=== PATIENT | female | born 1945 | race American Indian/Alaskan Native ===

== ENCOUNTER 2020-10-01 05:48 | Observation (INO) | payer MEDICARE ==
[2020-10-01 06:32] LABS: Basophils % (Auto) 0.5 % (0.0-1.8); Eosinophils # (Auto) 0.1 K/mm3 (0.0-0.4); Eosinophils % (Auto) 1.7 % (0.0-4.3); Hematocrit 25.8 % (30.3-42.9); Hemoglobin 8.8 gm/dl (10.1-14.3); Lymphocytes % (Auto) 21.7 % (13.4-35.0); Mean Corpuscular HGB Conc 34 % (30-34); Mean Corpuscular Volume 100 fl (79-97); Monocytes # (Auto) 0.3 K/mm3 (0.0-0.8); Monocytes % (Auto) 5.8 % (0.0-7.3); Platelet Count 239 K/mm3 (140-440); Red Blood Count 2.58 M/mm3 (3.65-5.03); Red Cell Distribution Width 13.8 % (13.2-15.2)
[2020-10-01] MEDS ORDERED: SODIUM CHLORIDE 0.9% 1000 ML 1,000 ML IV ONE ×2 (06:32)
--- NOTE | 2020-10-01 06:41 | Emergency Department Report ---
HPI - General Chief Complaint: GI Bleed Time Seen by Provider: 10/01/20 06:30 - HPI HPI: Room 2 The patient is a 75-year-old female present with a chief complaint of rectal bleeding. Last night the patient noticed a little bit of blood in her stool aft er having a bowel movement. This morning at approximately 03: 00 the patient went to the bathroom and started passing blood per rectum including blood clots. This continued intermittently throughout the morning prompting family to bring the patient to the emergency department. Patient denies nausea/vomiting or abdominal pain. Patient denies have any complaints currently. Systolic blood pressure 160 at time of interview ED Past Medical Hx - Past Medical History Previous Medical History?: Yes Hx Hypertension: Yes - Surgical History Past Surgical History?: Yes Additional Surgical History: Thyroidectomy - Family History Family history: no significant - Social History Smoking Status: Never Smoker Substance Use Type: None (Denies illicit drug use) ED Review of Systems ROS: Stated complaint: BLEEDING CLOTS,WEAKNESS Other details as noted in HPI Constitutional: no symptoms reported Eyes: denies: eye pain ENT: denies: throat pain Respiratory: no symptoms reported Cardiovascular: denies: chest pain Endocrine: no symptoms reported Gastrointestinal: hematochezia. denies: abdominal pain, nausea, vomiting Genitourinary: denies: dysuria Musculoskeletal: denies: back pain Neurological: denies: headache Physical Exam - Physical Exam Vital Signs: Vital Signs 10/01/20 10/01/20 06:16 06:18 Temperature 97.6 F Pulse Rate 67 Respiratory 16 16 Rate Blood Pressure 67/40 [Left] Blood Pressure 59/41 [Right] O2 Sat by Pulse 98 99 Oximetry Physical Exam: GENERAL: The patient is well-developed well-nourished female lying on stretcher not appearing to be in acute distress. [] HEENT: Normocephalic. Atraumatic. Extraocular motions are intact. Patient has moist mucous membranes. NECK: Supple. Trachea midline CHEST/LUNGS: Clear to auscultation. There is no respiratory distress noted. HEART/CARDIOVASCULAR: Regular. There is no tachycardia. There is no gallop rub or murmur. ABDOMEN: Abdomen is soft, nontender. Patient has normal bowel sounds. There is no abdominal distention. SKIN: There is no rash. There is no edema. There is no diaphoresis. NEURO: The patient is awake, alert, and oriented. The patient is cooperative. The patient has no focal neurologic deficits. The patient has normal speech MUSCULOSKELETAL:There is no evidence of acute injury. RECTAL: Guaiac positive. No active bleeding at time of exam ED Course Vital Signs 10/01/20 10/01/20 06:16 06:18 Temperature 97.6 F Pulse Rate 67 Respiratory 16 16 Rate Blood Pressure 67/40 [Left] Blood Pressure 59/41 [Right] O2 Sat by Pulse 98 99 Oximetry - Consultations Consultation #1: 10/01/20 08:38 [facility] paged 10/01/20 09:52 Informed by [place] that the patient does not have an account with them Consultation #2: 10/01/20 09:35 GI paged ED Medical Decision Making - Lab Data Result diagrams: 10/01/20 06:02 10/01/20 06:02 - Differential Diagnosis Diverticulosis, colonic mass Critical care attestation.: If time is entered above; I have spent that time in minutes in the direct care of this critically ill patient, excluding procedure time. ED Disposition Clinical Impression: Rectal bleeding Disposition: DC-09 OP ADMIT IP TO THIS HOSP Is pt being admited?: Yes Does the pt Need Aspirin: No Condition: Stable Referrals: PRIMARY CARE, [Primary Care Provider] - 3-5 Days Forms: Accompanied Note Time of Disposition: 09:53 (Hospitalist paged)
[2020-10-01 06:45] LABS: Calcium 8.7 mg/dL (8.4-10.2)
[2020-10-01 07:31] LABS: INR 1.14 (0.87-1.13)
[2020-10-01 07:32] LABS: Partial Thromboplastin Time 27.3 Sec. (24.2-36.6)
[2020-10-01 08:36] LABS: Creatine Kinase MB 1.9 ng/mL (0.0-4.0)
[2020-10-01 08:41] LABS: Alanine Aminotransferase 7 units/L (7-56); Albumin 3.4 g/dL (3.9-5)
[2020-10-01 08:46] LABS: Bilirubin,Direct < 0.2 mg/dL (0-0.2)
--- NOTE | 2020-10-01 10:34 | History and Physical Report ---
History of Present Illness Date of examination: 10/01/20 Date of admission: 10/01/20 Chief complaint: GI bleed History of present illness: Patient is a 75-year-old woman with past medical hx of thyroidectomy, prior history of hematochezia presenting to the hospital with hematochezia, She was in her usual state of good health and on September 29, reported to her daughter that she had a bowel movement with some red blood in the bowl. This was not witnessed. She had no further problems and no further bowel movements until 3:00 this morning. At that time, she reported having a large amount of blood and clot in the bowl. She then had 2 more bouts of hematochezia and became weak and lightheaded and dizzy. Because of this, she was brought to the emergency room. Currently, she is doing well and is comfortable. The patient reports that she has had lost about 30 pounds of weight in the last 3 to 6 months unintentionally. She denies tobacco use. She has noted some skin color changes on her right need to cough variable attributed this to using heaters. She denies abdominal pain, nausea, vomiting. She denies prior GI bleeding. There is no history of peptic ulcer disease. She has bowel movements approximately 3 times a week without any change. She takes an 81 mg aspirin but otherwise does not take any nonsteroidals and is on not on any blood thinners. She denies chest pain or shortness of breath. She has never had a colonoscopy. She has very poor p.o. intake according to family. Past History Past Medical History: hypertension Past Surgical History: Other (Thyroidectomy) Social history: no significant social history Family history: no significant family history Medications and Allergies Allergies Allergy/AdvReac Type Severity Reaction Status Date / Time No Known Allergies Allergy Unverified 10/01/20 05:59 Active Meds: Active Medications Acetaminophen (Acetaminophen 325 Mg Tab) 650 mg PO Q4H PRN PRN Reason: Pain MILD(1-3)/Fever >100.5/CONLEY Al Hydrox/Mg Hydrox/Simethicone (Alum-Mag Hydroxide-Simethicone [phone]/5ml Oral Liqd 30 Ml) 30 ml PO Q4H PRN PRN Reason: Indigestion Albuterol (Albuterol 2.5 Mg/3 Ml Nebu) 2.5 mg IH Q4HRT PRN PRN Reason: Shortness Of Breath Docusate Sodium (Docusate Sodium 100 Mg Cap) 100 mg PO BID NAREN Dextrose/Sodium Chloride (D5ns) 1,000 mls @ 125 mls/hr IV DIRECT NAREN Morphine Sulfate (Morphine 2 Mg/1 Ml Inj) 2 mg IV Q4H PRN PRN Reason: Pain, Moderate (4-6) Ondansetron HCl (Ondansetron 4 Mg/2 Ml Inj) 4 mg IV Q8H PRN PRN Reason: Nausea And Vomiting Pantoprazole Sodium (Pantoprazole 40 Mg Inj) 40 mg IV BID NAREN Sodium Chloride (Sodium Chloride 0.9% 10 Ml Flush Syringe) 10 ml IV BID NAREN Sodium Chloride (Sodium Chloride 0.9% 10 Ml Flush Syringe) 10 ml IV PRN PRN PRN Reason: LINE FLUSH Review of Systems All systems: negative Constitutional: weight loss Cardiovascular: no chest pain, no orthopnea, no palpitations, no rapid/irregular heart beat Respiratory: no cough with sputum, no excessive sputum, no hemoptysis Rectal: bleeding Exam - Physical Exam Narrative exam: VITAL SIGNS: Reviewed. GENERAL: The patient appears normally developed, markedly cachectic vital signs as documented. HEAD: No signs of head trauma. EYES: Pupils are equal. Extraocular motions intact. EARS: Hearing grossly intact. MOUTH: Oropharynx is normal. NECK: No adenopathy, no JVD. CHEST: Chest with clear breath sounds bilaterally. No wheezes, rales, or rhonchi. CARDIAC: Regular rate and rhythm. S1 and S2, without murmurs, gallops, or rubs. VASCULAR: No Edema. Peripheral pulses normal and equal in all extremities. ABDOMEN: Soft, non tender and non distended. No rebound or guarding, and no masses palpated. Bowel Sounds normal. MUSCULOSKELETAL: Good range of motion of all major joints. Extremities without clubbing, cyanosis or edema. NEUROLOGIC EXAM: Alert and oriented x 3 No focal sensory or strength deficits. Speech normal. Follows commands. PSYCHIATRIC: Mood normal. SKIN: Skin excoriation like detail exam as documented in skin assessment - Constitutional Vitals: Temp Pulse Resp BP Pulse Ox 97.6 F 76 16 157/113 99 10/01/20 06:16 10/01/20 08:23 10/01/20 07:05 10/01/20 08:23 10/01/20 06:18 HEART Score - HEART Score Troponin: Troponin T < 0.010 ng/mL (0.00-0.029) 10/01/20 06:50 Results - Labs CBC & Chem 7: 10/01/20 10:42 10/01/20 06:02 Labs: Laboratory Last Values WBC 4.6 K/mm3 (4.5-11.0) 10/01/20 06:02 RBC 2.58 M/mm3 (3.65-5.03) L 10/01/20 06:02 Hgb 8.8 gm/dl (10.1-14.3) L 10/01/20 06:02 Hct 25.8 % (30.3-42.9) L 10/01/20 06:02 MCV 100 fl (79-97) H 10/01/20 06:02 MCH 34 pg (28-32) H 10/01/20 06:02 MCHC 34 % (30-34) 10/01/20 06:02 RDW 13.8 % (13.2-15.2) 10/01/20 06:02 Plt Count 239 K/mm3 (140-440) 10/01/20 06:02 Lymph % (Auto) 21.7 % (13.4-35.0) 10/01/20 06:02 [place] % (Auto) 5.8 % (0.0-7.3) 10/01/20 06:02 Eos % (Auto) 1.7 % (0.0-4.3) 10/01/20 06:02 Baso % (Auto) 0.5 % (0.0-1.8) 10/01/20 06:02 Lymph # (Auto) 1.0 K/mm3 (1.2-5.4) L 10/01/20 06:02 [place] # (Auto) 0.3 K/mm3 (0.0-0.8) 10/01/20 06:02 Eos # (Auto) 0.1 K/mm3 (0.0-0.4) 10/01/20 06:02 Baso # (Auto) 0.0 K/mm3 (0.0-0.1) 10/01/20 06:02 Seg Neutrophils % 70.3 % (40.0-70.0) H 10/01/20 06:02 Seg Neutrophils # 3.3 K/mm3 (1.8-7.7) 10/01/20 06:02 PT 14.4 Sec. (12.2-14.9) 10/01/20 06:50 INR 1.14 (0.87-1.13) H 10/01/20 06:50 APTT 27.3 Sec. (24.2-36.6) 10/01/20 06:50 Sodium 141 mmol/L (137-145) 10/01/20 06:02 Potassium 3.5 mmol/L (3.6-5.0) L 10/01/20 06:02 Chloride 103.5 mmol/L (98-107) 10/01/20 06:02 Carbon Dioxide 30 mmol/L (22-30) 10/01/20 06:02 Anion Gap 11 mmol/L 10/01/20 06:02 BUN 23 mg/dL (7-17) H 10/01/20 06:02 Creatinine 1.7 mg/dL (0.6-1.2) H 10/01/20 06:02 Estimated GFR 35 ml/min 10/01/20 06:02 BUN/Creatinine Ratio 14 % 10/01/20 06:02 Glucose 128 mg/dL (65-100) H 10/01/20 06:02 Calcium 8.7 mg/dL (8.4-10.2) 10/01/20 06:02 Total Bilirubin 0.20 mg/dL (0.1-1.2) 10/01/20 06:50 Direct Bilirubin < 0.2 mg/dL (0-0.2) 10/01/20 06:50 Indirect Bilirubin 0.0 mg/dL 10/01/20 06:50 AST 14 units/L (5-40) 10/01/20 06:50 ALT 7 units/L (7-56) 10/01/20 06:50 Alkaline Phosphatase 55 units/L (35-129) 10/01/20 06:50 Total Creatine Kinase 91 units/L (30-135) 10/01/20 06:50 CK-MB (CK-2) 1.9 ng/mL (0.0-4.0) 10/01/20 06:50 CK-MB (CK-2) Rel Index 2.0 (0-4) 10/01/20 06:50 Troponin T < 0.010 ng/mL (0.00-0.029) 10/01/20 06:50 Total Protein 6.1 g/dL (6.3-8.2) L 10/01/20 06:50 Albumin 3.4 g/dL (3.9-5) L 10/01/20 06:50 Albumin/Globulin Ratio 1.3 % 10/01/20 06:50 Blood Type O POSITIVE 10/01/20 06:58 Antibody Screen Negative 10/01/20 06:58 Microbiology: Microbiology 10/01/20 07:00 Stool Stool Occult Blood (DEVIKA) - Final Assessment and Plan Assessment and plan: 75-year-old female with past medical history HTN, presenting with hematochezia and weight loss. Rectal bleed rule out diverticular bleed versus tumor or ischemia although no abdominal pain noted Posthemorrhagic anemia Moderate protein calorie malnutrition Hypertension Weight loss Plan Admit to observation Discussed with GI who has been consulted from the ED plan for colonoscopy in a.m. Clear liquid diet today and n.p.o. after midnight PPI Considering patient's poor p.o. intake and compliance GI recommended that the daughter stays overnight to assist with prep intake in a.m.. Please nursing staff and administration make necessary arrangements to allow the daughter to stay overnight according to the GI recommendation. DVT and GI prophylaxis SCDs only Advance Directives: Yes Plan of care discussed with patient/family: Yes
--- NOTE | 2020-10-01 10:55 | Electrocardiograph Report ---
[facility] Test Date: 2020-10-01 Test Time: 06:21:03 Pat Name: THANIA EWING Department: Room: Gender: F Night Warehouse Manager: KATIE : 1945 Requested By: EVIE CASTLE Order Number: [id number] Reading MD: Derick Perez Measurements Intervals [place] Rate: 79 P: 59 DE: 191 QRS: -48 QRSD: 105 T: 145 QT: 416 QTc: 478 Interpretive Statements Sinus rhythm Multiple premature complexes, vent & supraven Left anterior fascicular block LVH with secondary repolarization abnormality Probable anterior infarct, age indeterminate No previous ECG available for comparison Electronically Signed On 10-01-2020 10:55:05 EDT by Derick Perez
[2020-10-01 11:00] LABS: Hematocrit 23.7 % (30.3-42.9); Hemoglobin 7.9 gm/dl (10.1-14.3)
[2020-10-01] MEDS ORDERED: ALUM-MAG HYDROXIDE-SIMETHICONE 200-200-20MG/5ML ORAL LIQD 30 ML PO PRN (11:00)
[2020-10-01] MEDS ORDERED: ACETAMINOPHEN 325 MG TAB PO PRN (11:00)
[2020-10-01] MEDS ORDERED: ONDANSETRON 4 MG/2 ML INJ IV PRN (11:00)
[2020-10-01] MEDS ORDERED: MORPHINE 2 MG/1 ML INJ IV PRN (11:00)
[2020-10-01] MEDS: PANTOPRAZOLE 40 MG INJ IV SCH ×2 (11:32→21:52)
[2020-10-01] MEDS: DOCUSATE SODIUM 100 MG CAP PO SCH ×2 (11:32→21:52)
[2020-10-01] MEDS ORDERED: ALBUTEROL 2.5 MG/3 ML NEBU IH PRN (12:00)
--- NOTE | 2020-10-01 13:08 | Consultation ---
History of Present Illness - Reason for Consult Consult date: 10/01/20 Hematochezia Requesting physician: EVIE CASTLE - History of Present Illness Ms. Ryder is a 75-year-old woman who is visiting from [place] and came to the hospital for hematochezia, for which I am consulted. She was in her usual state of good health and on September 29, reported to her daughter that she had a bowel movement with some red blood in the bowl. This was not witnessed. She had no further problems and no further bowel movements until 3:00 this morning. At that time, she reported having a large amount of blood and clot in the bowl. She then had 2 more bouts of hematochezia and became weak and lightheaded and dizzy. Because of this, she was brought to the emergency room. Currently, she is doing well and is comfortable. She denies abdominal pain, nausea, vomiting. She denies prior GI bleeding. There is no history of peptic ulcer disease. She has bowel movements approxima tely 3 times a week without any change. She takes an 81 mg aspirin but otherwise does not take any nonsteroidals and is on not on any blood thinners. She denies chest pain or shortness of breath. She has never had a colonoscopy. She may gradually be losing weight as the daughter states she does not eat much, but she denies any discomfort. Any weight loss has been very gradual. Medications reviewed. Past History Past Medical History: hypertension Past Surgical History: Other (Thyroidectomy) Medications and Allergies Allergies Allergy/AdvReac Type Severity Reaction Status Date / Time No Known Allergies Allergy Unverified 10/01/20 05:59 Active Meds: Active Medications Acetaminophen (Acetaminophen 325 Mg Tab) 650 mg PO Q4H PRN PRN Reason: Pain MILD(1-3)/Fever >100.5/CONLEY Al Hydrox/Mg Hydrox/Simethicone (Alum-Mag Hydroxide-Simethicone [phone]/5ml Oral Liqd 30 Ml) 30 ml PO Q4H PRN PRN Reason: Indigestion Albuterol (Albuterol 2.5 Mg/3 Ml Nebu) 2.5 mg IH Q4HRT PRN PRN Reason: Shortness Of Breath Docusate Sodium (Docusate Sodium 100 Mg Cap) 100 mg PO BID NAREN Last Admin: 10/01/20 11:32 Dose: 100 mg Documented by: Dextrose/Sodium Chloride (D5ns) 1,000 mls @ 125 mls/hr IV DIRECT [facility] Morphine Sulfate (Morphine 2 Mg/1 Ml Inj) 2 mg IV Q4H PRN PRN Reason: Pain, Moderate (4-6) Ondansetron HCl (Ondansetron 4 Mg/2 Ml Inj) 4 mg IV Q8H PRN PRN Reason: Nausea And Vomiting Pantoprazole Sodium (Pantoprazole 40 Mg Inj) 40 mg IV BID [facility] Last Admin: 10/01/20 11:32 Dose: 40 mg Documented by: Sodium Chloride (Sodium Chloride 0.9% 10 Ml Flush Syringe) 10 ml IV BID [facility] Last Admin: 10/01/20 11:32 Dose: 10 ml Documented by: Sodium Chloride (Sodium Chloride 0.9% 10 Ml Flush Syringe) 10 ml IV PRN PRN PRN Reason: LINE FLUSH Review of Systems All systems: negative (as per HPI) Exam - Constitutional Vitals: Temp Pulse Resp BP Pulse Ox 97.6 F 103 H 26 H 161/115 98 10/01/20 06:16 10/01/20 11:15 10/01/20 11:15 10/01/20 11:15 10/01/20 11:15 General appearance: Present: no acute distress, other (Mild temporal wasting) - EENT Eyes: Present: PERRL, EOM intact ENT: hearing intact - Respiratory Respiratory effort: normal Respiratory: bilateral: CTA - Cardiovascular Rhythm: regular Heart Sounds: Present: S1 & S2 - Extremities Extremities: No edema - Abdominal General gastrointestinal: Present: soft, non-tender - Psychiatric Psychiatric: appropriate mood/affect, cooperative Results - Labs CBC & Chem 7: 10/01/20 10:42 10/01/20 06:02 Labs: Abnormal lab results 10/01/20 10/01/20 10/01/20 Range/Units 06:02 06:02 06:50 RBC 2.58 L (3.65-5.03) M/mm3 Hgb 8.8 L (10.1-14.3) gm/dl Hct 25.8 L (30.3-42.9) % MCV 100 H (79-97) fl MCH 34 H (28-32) pg Lymph # (Auto) 1.0 L (1.2-5.4) K/mm3 Seg Neutrophils % 70.3 H (40.0-70.0) % INR 1.14 H (0.87-1.13) Potassium 3.5 L (3.6-5.0) mmol/L BUN 23 H (7-17) mg/dL Creatinine 1.7 H (0.6-1.2) mg/dL Glucose 128 H (65-100) mg/dL Total Protein (6.3-8.2) g/dL Albumin (3.9-5) g/dL 10/01/20 10/01/20 Range/Units 06:50 10:42 RBC (3.65-5.03) M/mm3 Hgb 7.9 L (10.1-14.3) gm/dl Hct 23.7 L (30.3-42.9) % MCV (79-97) fl MCH (28-32) pg Lymph # (Auto) (1.2-5.4) K/mm3 Seg Neutrophils % (40.0-70.0) % INR (0.87-1.13) Potassium (3.6-5.0) mmol/L BUN (7-17) mg/dL Creatinine (0.6-1.2) mg/dL Glucose (65-100) mg/dL Total Protein 6.1 L (6.3-8.2) g/dL Albumin 3.4 L (3.9-5) g/dL Assessment and Plan 1. Hematochezia -seems to have stopped as patient has not had any further bleeding in approximately 7 hours. Most consistent with lower GI bleed, and most likely a diverticular bleed. Tumor, ischemia, other causes need to be excluded. Patient is currently stable. -Monitor hemoglobin and transfuse as needed -Daily PPI empirically -Will prep starting early in the morning and proceed with colonoscopy tomorrow. -If has more frequent hematochezia, would get stat CT angiogram. Plan, and risks and benefits of colonoscopy explained to patient and her daughter.
[2020-10-01] MEDS: hydrALAZINE 20 MG/1 ML INJ IV PRN (17:58)
[2020-10-01 19:54] LABS: Hematocrit 26.2 % (30.3-42.9); Hemoglobin 8.8 gm/dl (10.1-14.3)
[2020-10-02 02:35] LABS: Basophils # (Auto) 0.1 K/mm3 (0.0-0.1); Eosinophils % (Auto) 0.5 % (0.0-4.3); Hematocrit 22.6 % (30.3-42.9); Hemoglobin 7.6 gm/dl (10.1-14.3); Lymphocytes # (Auto) 0.6 K/mm3 (1.2-5.4); Lymphocytes % (Auto) 12.8 % (13.4-35.0); Mean Corpuscular HGB Conc 34 % (30-34); Mean Corpuscular Volume 98 fl (79-97); Monocytes # (Auto) 0.3 K/mm3 (0.0-0.8); Monocytes % (Auto) 6.8 % (0.0-7.3); Platelet Count 207 K/mm3 (140-440); Red Cell Distribution Width 13.5 % (13.2-15.2)
[2020-10-02 02:53] LABS: BUN/Creatinine Ratio 14; Blood Urea Nitrogen 14 mg/dL (7-17); Calcium 8.2 mg/dL (8.4-10.2); Hemolysis Index 0
[2020-10-02] MEDS ORDERED: POLYETHYLENE GLYCOL/ELECT SOLN 4000 ML PO ONE (04:00)
[2020-10-02] MEDS ORDERED: SODIUM CHLORIDE 0.9% 500 ML 500 ML IV ONE (04:49)
[2020-10-02] MEDS ORDERED: POTASSIUM CHLORIDE ER 20 MEQ TAB PO NR (07:45)
[2020-10-02] MEDS: hydrALAZINE 20 MG/1 ML INJ IV PRN (08:25)
[2020-10-02] MEDS: POTASSIUM CHLORIDE 10 MEQ 10 MEQ/100 ML BAG IV SCH ×3 (10:17→20:48)
[2020-10-02] MEDS ORDERED: WATER FOR IRRIG STERILE 1,000 ML BOTTLE ONE (10:35)
[2020-10-02] MEDS ORDERED: WATER FOR IRRIG STERILE 250 ML BOTTLE IR ONE (10:35)
[2020-10-02] MEDS: DOCUSATE SODIUM 100 MG CAP PO SCH ×2 (11:14→21:24)
[2020-10-02] MEDS ORDERED: SODIUM CHLORIDE 0.9% 1000 ML 1,000 ML ONE (11:26)
--- NOTE | 2020-10-02 11:32 | Progress Note ---
Assessment and Plan Assessment and plan: 75-year-old female with past medical history HTN, presenting with hematochezia and weight loss. Rectal bleed rule out diverticular bleed versus tumor or ischemia although no abdominal pain noted Posthemorrhagic anemia Moderate protein calorie malnutrition Hypertension Weight loss Plan Patient plan for colonoscopy today remain n.p.o. Likely discharge post colonoscopy if okay with GI Continue PPI Blood pressure elevated will start patient on Norvasc in addition to her losartan. For now use as needed hydralazine. PPI Considering patient's poor p.o. intake and compliance GI recommended that the daughter stays overnight to assist with prep intake in a.m.. Please nursing staff and administration make necessary arrangements to allow the daughter to stay overnight according to the GI recommendation. DVT and GI prophylaxis SCDs only History Interval history: Patient seen and examined resting comfortably no new complaints at this time. Was able to drink her prep Hospitalist Physical - Physical exam Narrative exam: VITAL SIGNS: Reviewed. GENERAL: The patient appears normally developed, markedly cachectic vital signs as documented. HEAD: No signs of head trauma. EYES: Pupils are equal. Extraocular motions intact. EARS: Hearing grossly intact. MOUTH: Oropharynx is normal. NECK: No adenopathy, no JVD. CHEST: Chest with clear breath sounds bilaterally. No wheezes, rales, or rhonchi. CARDIAC: Regular rate and rhythm. S1 and S2, without murmurs, gallops, or rubs. VASCULAR: No Edema. Peripheral pulses normal and equal in all extremities. ABDOMEN: Soft, non tender and non distended. No rebound or guarding, and no masses palpated. Bowel Sounds normal. MUSCULOSKELETAL: Good range of motion of all major joints. Extremities without clubbing, cyanosis or edema. NEUROLOGIC EXAM: Alert and oriented x 3 No focal sensory or strength deficits. Speech normal. Follows commands. PSYCHIATRIC: Mood normal. SKIN: Skin excoriation like detail exam as documented in skin assessment - Constitutional Vitals: Temp Pulse Resp BP Pulse Ox 97.7 F 64 18 172/118 99 10/02/20 08:10 10/02/20 08:10 10/02/20 08:10 10/02/20 08:10 10/02/20 08:10 General appearance: Present: no acute distress, other (Mild temporal wasting) HEART Score - HEART Score Troponin: Troponin T < 0.010 ng/mL (0.00-0.029) 10/01/20 06:50 Results - Labs CBC & Chem 7: 10/02/20 02:24 10/02/20 02:24 Labs: Laboratory Last Values WBC 5.0 K/mm3 (4.5-11.0) 10/02/20 02:24 RBC 2.30 M/mm3 (3.65-5.03) L 10/02/20 02:24 Hgb 7.6 gm/dl (10.1-14.3) L 10/02/20 02:24 Hct 22.6 % (30.3-42.9) L 10/02/20 02:24 MCV 98 fl (79-97) H 10/02/20 02:24 MCH 33 pg (28-32) H 10/02/20 02:24 MCHC 34 % (30-34) 10/02/20 02:24 RDW 13.5 % (13.2-15.2) 10/02/20 02:24 Plt Count 207 K/mm3 (140-440) 10/02/20 02:24 Lymph % (Auto) 12.8 % (13.4-35.0) L 10/02/20 02:24 [place] % (Auto) 6.8 % (0.0-7.3) 10/02/20 02:24 Eos % (Auto) 0.5 % (0.0-4.3) 10/02/20 02:24 Baso % (Auto) 2.0 % (0.0-1.8) H 10/02/20 02:24 Lymph # (Auto) 0.6 K/mm3 (1.2-5.4) L 10/02/20 02:24 [place] # (Auto) 0.3 K/mm3 (0.0-0.8) 10/02/20 02:24 Eos # (Auto) 0.0 K/mm3 (0.0-0.4) 10/02/20 02:24 Baso # (Auto) 0.1 K/mm3 (0.0-0.1) 10/02/20 02:24 Seg Neutrophils % 77.9 % (40.0-70.0) H 10/02/20 02:24 Seg Neutrophils # 3.9 K/mm3 (1.8-7.7) 10/02/20 02:24 PT 14.4 Sec. (12.2-14.9) 10/01/20 06:50 INR 1.14 (0.87-1.13) H 10/01/20 06:50 APTT 27.3 Sec. (24.2-36.6) 10/01/20 06:50 Sodium 141 mmol/L (137-145) 10/02/20 02:24 Potassium 3.2 mmol/L (3.6-5.0) L 10/02/20 02:24 Chloride 106.4 mmol/L (98-107) 10/02/20 02:24 Carbon Dioxide 26 mmol/L (22-30) 10/02/20 02:24 Anion Gap 12 mmol/L 10/02/20 02:24 BUN 14 mg/dL (7-17) 10/02/20 02:24 Creatinine 1.0 mg/dL (0.6-1.2) 10/02/20 02:24 Estimated GFR > 60 ml/min 10/02/20 02:24 BUN/Creatinine Ratio 14 % 10/02/20 02:24 Glucose 97 mg/dL (65-100) 10/02/20 02:24 POC Glucose 87 mg/dL (70-105) 10/02/20 05:25 Calcium 8.2 mg/dL (8.4-10.2) L 10/02/20 02:24 Total Bilirubin 0.20 mg/dL (0.1-1.2) 10/01/20 06:50 Direct Bilirubin < 0.2 mg/dL (0-0.2) 10/01/20 06:50 Indirect Bilirubin 0.0 mg/dL 10/01/20 06:50 AST 14 units/L (5-40) 10/01/20 06:50 ALT 7 units/L (7-56) 10/01/20 06:50 Alkaline Phosphatase 55 units/L (35-129) 10/01/20 06:50 Total Creatine Kinase 91 units/L (30-135) 10/01/20 06:50 CK-MB (CK-2) 1.9 ng/mL (0.0-4.0) 10/01/20 06:50 CK-MB (CK-2) Rel Index 2.0 (0-4) 10/01/20 06:50 Troponin T < 0.010 ng/mL (0.00-0.029) 10/01/20 06:50 Total Protein 6.1 g/dL (6.3-8.2) L 10/01/20 06:50 Albumin 3.4 g/dL (3.9-5) L 10/01/20 06:50 Albumin/Globulin Ratio 1.3 % 10/01/20 06:50 Blood Type O POSITIVE 10/01/20 06:58 Antibody Screen Negative 10/01/20 06:58 Crossmatch See Detail 10/01/20 06:58 Microbiology: Microbiology 10/01/20 07:00 Stool Stool Occult Blood (DEVIKA) - Final Manning/IV: Voiding Method Bedside Commode Active Medications - Current Medications Current Medications: Generic Name Dose Route Start Last Admin Trade Name Freq PRN Reason Stop Dose Admin Acetaminophen 650 mg 10/01/20 11:00 Acetaminophen 325 Mg Tab PO Q4H PRN Pain MILD(1-3)/Fever >100.5/CONLEY Al Hydrox/Mg Hydrox/Simethicone 30 ml 10/01/20 11:00 Alum-Mag Hydroxide-Simethicone [id number]/5ml Oral Liqd 30 Ml PO Q4H PRN Indigestion Albuterol 2.5 mg 10/01/20 12:00 Albuterol 2.5 Mg/3 Ml Nebu IH Q4HRT PRN Shortness Of Breath Amlodipine Besylate 10 mg 10/02/20 12:00 Amlodipine 10 Mg Tab PO QDAY NAREN Docusate Sodium 100 mg 10/01/20 12:00 10/02/20 11:14 Docusate Sodium 100 Mg Cap PO Not Given BID NAREN Hydralazine HCl 10 mg 10/01/20 16:40 10/02/20 08:25 Hydralazine 20 Mg/1 Ml Inj IV 10 mg Q4HR PRN Administration Hypertension Dextrose/Sodium Chloride 1,000 mls @ 125 mls/hr 10/01/20 11:00 D5ns IV DIRECT NAREN Morphine Sulfate 2 mg 10/01/20 11:00 Morphine 2 Mg/1 Ml Inj IV Q4H PRN Pain, Moderate (4-6) Ondansetron HCl 4 mg 10/01/20 11:00 10/02/20 06:26 Ondansetron 4 Mg/2 Ml Inj IV 4 mg Q8H PRN Administration Nausea And Vomiting Pantoprazole Sodium 40 mg 10/02/20 10:00 Pantoprazole 40 Mg Inj IV DAILY NAREN Potassium Chloride 40 meq 10/02/20 07:45 Potassium Chloride Er 20 Meq Tab PO 10/02/20 12:00 ONCE NR Sodium Chloride 10 ml 10/01/20 12:00 10/02/20 04:32 Sodium Chloride 0.9% 10 Ml Flush Syringe IV 10 ml BID NAREN Administration Sodium Chloride 10 ml 10/01/20 11:00 Sodium Chloride 0.9% 10 Ml Flush Syringe IV PRN PRN LINE FLUSH
--- NOTE | 2020-10-02 11:39 | Anesthesia Consultation ---
Anesthesia Consult and Med Hx Date of service: 10/02/20 - Airway Anesthetic Teeth Evaluation: Poor ROM Head & Neck: Adequate Mental/Hyoid Distance: Adequate Mallampati Class: Class I Intubation Access Assessment: Good - Pulmonary Exam CTA: Yes - Pre-Operative Health Status ASA Pre-Surgery Classification: ASA2 Proposed Anesthetic Plan: MAC - Pulmonary Hx Smoking: No Hx Asthma: No SOB: Yes COPD: No Hx Pneumonia: No Hx Sleep Apnea: No (high scor edward) - Cardiovascular System Hx Hypertension: Yes Hx Coronary Artery Disease: No Hx Heart Attack/AMI: No Hx Angina: No Hx Percutaneous Transluminal Coronary Angioplasty (PTCA): No Hx Pacemaker: No Hx Internal Defibrillator: No Hx Valvular Heart Disease: No Hx Heart Murmur: No Hx Peripheral Vascular Disease: No - Central Nervous System Hx Seizures: No CVA: No Hx Psychiatric Problems: No - Gastrointestinal Hx Gastroesophageal Reflux Disease: Yes - Endocrine Hx Renal Disease: No Hx Liver Disease: No Hx Insulin Dependent Diabetes: No Hx Non-Insulin Dependent Diabetes: No Hx Hyperthyroidism: No - Hematic Hx Anemia: No Hx Sickle Cell Disease: No - Other Systems Hx Alcohol Use: No Hx Substance Use: No Hx Cancer: No - Additional Comments Anesthesia Medical History Comments: Patient denies previous anesthesia complication.
--- NOTE | 2020-10-02 11:40 | Anesthesia Day of Surgery ---
Anesthesia Day of Surgery - Day of Surgery Patient Examined: Yes Patient H&P Reviewed: Yes Patient is NPO: Yes Beta Blockers: No Cardiac Clearance: No Pulmonary Clearance: No Joshua's Test: N/A
[2020-10-02] MEDS ORDERED: amLODIPine 10 MG TAB PO SCH (12:00)
[2020-10-02] MEDS ORDERED: SODIUM CHLORIDE 0.9% 1000 ML 1,000 ML IV SCH (12:30)
[2020-10-02] MEDS ORDERED: propofoL 200 MG/20 ML VIAL IV ONE (13:09)
[2020-10-02] MEDS ORDERED: LIDOCAINE MPF (2%) 20 MG/1 ML VIAL 5 ML ONE (13:09)
[2020-10-02] MEDS ORDERED: PHENYLEPHRINE/NS 1,000 MCG/10 ML SYRINGE (OR USE) IV ONE (13:37)
--- NOTE | 2020-10-02 13:40 | Post Operative Note ---
Pre-op diagnosis: Hematochezia Post-op diagnosis: other (Diverticulosis, with sigmoid as likely source) Findings: 1. Ascending colon diverticulosis, moderate. 2. Moderate sigmoid diverticulosis, with patchy erythema in distal sigmoid, suggestive of probable site of bleeding. 3. Otherwise normal colonoscopy, with some brown stool noted and no blood. 4. Rectal prolapse, mild. Procedure: Colonoscopy Anesthesia: MAC Surgeon: HALLEY CARTWRIGHT Estimated blood loss: none Pathology: none Condition: stable Disposition: floor (1. Adv diet. 2. If Hgb remains stable, may discharge to home.)
[2020-10-02 15:07] LABS: Hematocrit 29.1 % (30.3-42.9); Hemoglobin 9.8 gm/dl (10.1-14.3)
--- NOTE | 2020-10-02 15:23 | Post Anesthesia Evaluation ---
- Post Anesthesia Evaluation Patient Participated: Yes Airway Patent: Yes Stable Respiratory Function: Yes Nausea/Vomiting: No Temp > 96.8F: Yes Pain Manageable: Yes Adequeate Hydration: Yes Anesthesia Complications: No
[2020-10-02] MEDS: D5W/0.9% NACL 1,000 ML IV SCH (17:55)
[2020-10-02] MEDS: PANTOPRAZOLE 40 MG INJ IV SCH (17:56)
[2020-10-03] MEDS: D5W/0.9% NACL 1,000 ML IV SCH (02:35)
--- NOTE | 2020-10-03 06:27 | Operative Report ---
DATE OF SURGERY: 10/02/2020 PROCEDURE: Colonoscopy. PREOPERATIVE DIAGNOSIS: Hematochezia. POSTOPERATIVE DIAGNOSIS: Diverticulosis. SEDATION: MAC by anesthesia. The patient is a 75-year-old woman who came in with 3 bouts of hematochezia and her hemoglobin dropped down to 7.6. DESCRIPTION OF PROCEDURE: Indications, risks, and benefits were explained and consent was obtained. The patient was placed in left lateral decubitus position and sedated. Video colonoscope was passed through the rectum after digital examination and passed with minimal difficulty to the cecum, which was identified by the ileocecal valve and the appendiceal orifice. Scope was then gradually withdrawn with close inspection of the mucosa. FINDINGS: 1. Moderate ascending colon diverticulosis. 2. Moderately severe sigmoid diverticulosis with distal sigmoid area showing patchy erythema consistent with spasm. There were a few small specks of blood in that area. 3. Remainder of visualized colonic mucosa was normal appearing with no evidence of mass lesions, vascular lesions or inflammation. There were some scattered areas of liquid and brown stool with no evidence of blood. 4. Mild to moderate rectal prolapse. The patient tolerated the procedure well without immediate complication. IMPRESSION: 1. Diverticulosis -- likely source of bleeding was distal sigmoid. 2. Rectal prolapse -- mild. 3. Otherwise, normal colonoscopy with no evidence of active or old bleeding. RECOMMENDATIONS: 1. High-fiber diet. 2. Monitor H and H and transfuse as needed. 3. Advance diet. TID: [id number] RECEIPT: [id number] TAYLOR/CHI/DONNA
[2020-10-03] MEDS: DOCUSATE SODIUM 100 MG CAP PO SCH ×2 (08:15→10:00)
[2020-10-03] MEDS: PANTOPRAZOLE 40 MG INJ IV SCH (08:15)
[2020-10-03] MEDS: hydrALAZINE 20 MG/1 ML INJ IV PRN (08:56)
[2020-10-03 10:22] LABS: Calcium 8.3 mg/dL (8.4-10.2)
[2020-10-03 10:26] LABS: Hematocrit 30.5 % (30.3-42.9); Hemoglobin 10.1 gm/dl (10.1-14.3); Mean Corpuscular HGB Conc 33 % (30-34); Mean Corpuscular Volume 99 fl (79-97); Platelet Count 204 K/mm3 (140-440); Red Blood Count 3.09 M/mm3 (3.65-5.03); Red Cell Distribution Width 14.7 % (13.2-15.2)
--- NOTE | 2020-10-03 11:36 | Gastroenterology Progress Note ---
Assessment and Plan - Patient Problems (1) Diverticular hemorrhage Current Visit: Yes Status: Acute Plan to address problem: - Clinically improved, with colonoscopy otherwise negative. - OK to discharge home today per our service. - OK to resume daily ASA 81mg on Friday 10/06. - We will sign off; please call if needed. Subjective Date of service: 10/03/20 Principal diagnosis: LGI Bleed Interval history: The patient is tolerating her diet without hematochezia or N/V. She denies abdominal pain. Objective - Constitutional Vitals: Temp Pulse Resp BP Pulse Ox 97.4 F L 69 18 110/66 98 10/03/20 07:56 10/03/20 08:56 10/03/20 07:56 10/03/20 09:28 10/03/20 07:56 General appearance: no acute distress - Respiratory Respiratory effort: normal Respiratory: bilateral: CTA - Cardiovascular Rhythm: regular Heart Sounds: Present: S1 & S2 - Gastrointestinal General gastrointestinal: Present: soft, non-tender, non-distended - Labs CBC & Chem 7: 10/03/20 09:22 10/03/20 09:22 Labs: Laboratory Results - last 24 hr 10/02/20 10/02/20 10/03/20 14:50 16:38 09:22 WBC 4.7 RBC 3.09 L Hgb 9.8 L 10.1 Hct 29.1 L D 30.5 MCV 99 H MCH 33 H MCHC 33 RDW 14.7 Plt Count 204 Sodium Potassium Chloride Carbon Dioxide Anion Gap BUN Creatinine Estimated GFR BUN/Creatinine Ratio Glucose POC Glucose 115 H Calcium 10/03/20 09:22 WBC RBC Hgb Hct MCV MCH MCHC RDW Plt Count Sodium 144 Potassium 3.4 L Chloride 109.3 H Carbon Dioxide 25 Anion Gap 13 BUN 14 Creatinine 1.5 H Estimated GFR 41 BUN/Creatinine Ratio 9 Glucose 75 POC Glucose Calcium 8.3 L
[2020-10-03 15:26] VITALS: BP 126/76
--- NOTE | 2020-10-03 18:38 | Discharge Summary ---
Providers - Providers Date of Admission: 10/01/20 10:28 Date of discharge: 10/03/20 Attending physician: DAWIT LEBRON 10/01/20 09:58 Consult to Physician [CONS] Stat Comment: Consulting Provider: HALLEY CARTWRIGHT Physician Instructions: Reason For Exam: Rectal bleeding Primary care physician: [facility] Hospitalization Condition: Stable Procedures: Pre-op diagnosis: Hematochezia Post-op diagnosis: other (Diverticulosis, with sigmoid as likely source) Findings: 1. Ascending colon diverticulosis, moderate. 2. Moderate sigmoid diverticulosis, with patchy erythema in distal sigmoid, suggestive of probable site of bleeding. 3. Otherwise normal colonoscopy, with some brown stool noted and no blood. 4. Rectal prolapse, mild. Procedure: Colonoscopy Hospital course: Assessment and Plan Assessment and plan: 75-year-old female with past medical history HTN, presenting with hematochezia and weight loss. Rectal bleed rule out diverticular bleed versus tumor or ischemia although no abdominal pain noted Posthemorrhagic anemia Moderate protein calorie malnutrition Hypertension Weight loss Plan Patient plan for colonoscopy today remain n.p.o. Likely discharge post colonoscopy if okay with GI Continue PPI Blood pressure elevated will start patient on Norvasc in addition to her losartan. For now use as needed hydralazine. PPI Considering patient's poor p.o. intake and compliance GI recommended that the daughter stays overnight to assist with prep intake in a.m.. Please nursing staff and administration make necessary arrangements to allow the daughter to stay overnight according to the GI recommendation. DVT and GI prophylaxis SCDs only Disposition: - TO HOME OR SELFCARE Final Discharge Diagnosis (Prints w/discharge instructions): Lower GI Bleed. Diverticulosis. HTN Time spent for discharge: 35 min - Discharge Diagnoses (1) Diverticular hemorrhage Status: Acute (2) Lower GI bleed Status: Acute (3) HTN (hypertension) Status: Acute Core Measure Documentation - Palliative Care Palliative Care/ Comfort Measures: Not Applicable - Core Measures Any of the following diagnoses?: none Exam - Constitutional Vitals: Temp Pulse Resp BP Pulse Ox 98.0 F 69 16 126/76 98 10/03/20 15:21 10/03/20 15:21 10/03/20 15:21 10/03/20 15:21 10/03/20 15:21 General appearance: Present: no acute distress, well-nourished - EENT Eyes: Present: PERRL ENT: hearing intact, clear oral mucosa - Neck Neck: Present: supple, normal ROM - Respiratory Respiratory effort: normal Respiratory: bilateral: CTA - Cardiovascular Heart rate: 78 Heart Sounds: Present: S1 & S2. Absent: rub, click - Extremities Extremities: pulses symmetrical, No edema Peripheral Pulses: within normal limits - Abdominal General gastrointestinal: Present: soft, non-tender, non-distended, normal bowel sounds Female genitourinary: Present: normal - Rectal Rectal Exam: deferred - Integumentary Integumentary: Present: clear, warm, dry - Musculoskeletal Musculoskeletal: gait normal, strength equal bilaterally - Psychiatric Psychiatric: appropriate mood/affect, intact judgment & insight - Neurologic Neurologic: CNII-XII intact, moves all extremities - Allied Health Allied health notes reviewed: nursing, case management Plan Activity: no restrictions Diet: low salt Follow up with: HALLEY CARTWRIGHT MD [Staff Physician] - 7 Days PRIMARY CARE, [Primary Care Provider] - 3-5 Days Forms: Accompanied Note Prescriptions: amLODIPine 10 mg PO QDAY #30 tablet Pantoprazole [Protonix] 40 mg PO QDAY #30 tablet
[2020-10-04] MEDS ORDERED: PANTOPRAZOLE 40 MG TAB PO SCH (07:30)
== END 2020-10-03 19:30 | disposition home or self-care (01) ==
LOC: ED 05:48 → 3A 10:28 → 3B-SURG 16:36
PROVIDERS: ADMIT Internal Medicine; ATTEND Internal Medicine
DX: K57.31 Diverticulosis of large intestine without perforation or abscess with bleeding (principal); K62.5 Hemorrhage of anus and rectum; D50.0 Iron deficiency anemia secondary to blood loss (chronic); I10 Essential (primary) hypertension; E44.0 Moderate protein-calorie malnutrition; D64.9 Anemia, unspecified; R63.4 Abnormal weight loss; Z68.1 Body mass index [BMI] 19.9 or less, adult; Z90.49 Acquired absence of other specified parts of digestive tract; Z79.899 Other long term (current) drug therapy; Z98.890 Other specified postprocedural states
CPT/HCPCS: 36415; 36430; 45378; 80048; 80076; 82271; 82550; 82553; 82962; 84484; 85014; 85018; 85025; 85027; 85610; 85730; 86850; 86900; 86901; 86920; 93005; 96361; 96374; 96375; 96376; 99284; C9113; G0378; J0360; J2370; J2405; J2704; J3480; J7030; J7040; J7042; P9016

== ENCOUNTER 2020-10-18 22:34 | Inpatient (IN) | payer MEDICARE ==
--- NOTE | 2020-10-19 01:06 | Emergency Department Report ---
ED Altered Mental Status HPI - General Chief Complaint: Altered Mental Status Stated Complaint: DIFFICULTY MOVING/DISORIENTED Time Seen by Provider: 10/19/20 00:55 Source: patient, family Mode of arrival: Wheelchair Limitations: Physical Limitation - History of Present Illness Initial Comments: Patient is 75-year-old female with history of hypertension brought to the emergency room by her daughter for evaluation of altered mental status. Daughter stated that her mother was fine and last time she was seen normal was 1 PM yesterday. She stated that she locked herself in the room and when they talk to her she is not she is refusing to come out. She stated that they went inside and they found her in the bathroom holding her head between her leg and not talking. Upon arrival to the ER she stated that she started answering question by yes or no. Patient is in no acute distress with stable vital sign. Patient is moving all her extremities with no difficulty. Speech is clear. Daughter denies any history of dementia before. MD Complaint: altered mental status -: Last night Severity: Unable to Determine Associated Symptoms: denies other symptoms - Related Data Home Medications Medication Instructions Recorded Confirmed Last Taken Cetirizine HCl [Zyrtec 10mg tab] 10 mg PO ONCE PRN 10/02/20 10/02/20 Unknown lisinopriL [Zestril TAB] 5 mg PO QDAY 10/02/20 10/02/20 09/29/20 08:50 Previous Rx's Medication Instructions Recorded Last Taken Type Pantoprazole [Protonix] 40 mg PO QDAY #30 tablet 10/02/20 Unknown Rx amLODIPine 10 mg PO QDAY #30 tablet 10/02/20 Unknown Rx Allergies Allergy/AdvReac Type Severity Reaction Status Date / Time No Known Allergies Allergy Verified 10/02/20 08:30 ED Review of Systems ROS: Stated complaint: DIFFICULTY MOVING/DISORIENTED Other details as noted in HPI Comment: All other systems reviewed and negative Constitutional: denies: chills, fever Respiratory: denies: cough, shortness of breath Cardiovascular: denies: chest pain, palpitations Gastrointestinal: denies: abdominal pain, nausea, vomiting Neurological: confusion. denies: headache, weakness, numbness, paresthesias, abnormal gait ED Past Medical Hx - Past Medical History Previous Medical History?: Yes Hx Hypertension: Yes Hx Heart Attack/AMI: No Hx Congestive Heart Failure: No Hx Diabetes: No Hx Deep Vein Thrombosis: No Hx Pulmonary Embolism: No Hx Liver Disease: No Hx Renal Disease: No Hx Sickle Cell Disease: No Hx Arthritis: No Hx Seizures: No Hx Kidney Stones: No Hx Asthma: No Hx COPD: No Hx Tuberculosis: No Hx Dementia: Yes (Daughter says no) Hx HIV: No - Surgical History Past Surgical History?: Yes Hx Coronary Stent: No Hx Open Heart Surgery: No Hx Pacemaker: No Hx Internal Defibrillator: No Hx Cholecystectomy: No Hx Appendectomy: No Hx Breast Surgery: No Additional Surgical History: Thyroidectomy - Social History Smoking Status: Never Smoker Substance Use Type: None - Medications Home Medications: Home Medications Medication Instructions Recorded Confirmed Last Taken Type Cetirizine HCl [Zyrtec 10mg tab] 10 mg PO ONCE PRN 10/02/20 10/02/20 Unknown History Pantoprazole [Protonix] 40 mg PO QDAY #30 tablet 10/02/20 Unknown Rx amLODIPine 10 mg PO QDAY #30 tablet 10/02/20 Unknown Rx lisinopriL [Zestril TAB] 5 mg PO QDAY 10/02/20 10/02/20 09/29/20 08:50 History ED Physical Exam - General Limitations: Physical Limitation General appearance: alert, in no apparent distress - Head Head exam: Present: atraumatic, normocephalic, normal inspection - Eye Eye exam: Present: normal appearance, PERRL - ENT ENT exam: Present: normal exam, normal orophraynx, mucous membranes moist - Neck Neck exam: Present: normal inspection, full ROM. Absent: tenderness, meningismus - Respiratory Respiratory exam: Present: normal lung sounds bilaterally - Cardiovascular Cardiovascular Exam: Present: regular rate, normal rhythm, normal heart sounds - GI/Abdominal GI/Abdominal exam: Present: soft, normal bowel sounds. Absent: distended, tenderness, guarding, rebound, rigid, organomegaly, mass, bruit, pulsatile mass, hernia - Extremities Exam Extremities exam: Present: normal inspection, full ROM, normal capillary refill. Absent: tenderness, pedal edema, joint swelling, calf tenderness - Back Exam Back exam: Present: normal inspection, full ROM. Absent: CVA tenderness (R), CVA tenderness (L) - Neurological Exam Neurological exam: Present: alert, oriented X3, CN II-XII intact. Absent: motor sensory deficit - Psychiatric Psychiatric exam: Present: flat affect - Skin Skin exam: Present: warm, intact, normal color ED Course Vital Signs 10/18/20 10/19/20 10/19/20 23:06 01:21 01:36 Temperature 97.6 F 97.7 F Pulse Rate 71 65 Respiratory 18 20 20 Rate Blood Pressure 163/121 Blood Pressure 172/96 [Right] O2 Sat by Pulse 99 100 100 Oximetry - Lab Data Result diagrams: 10/19/20 00:52 10/19/20 00:52 Lab Results 10/19/20 10/19/20 10/19/20 Range/Units 00:52 00:52 01:08 WBC 7.0 (4.5-11.0) K/mm3 RBC 3.09 L (3.65-5.03) M/mm3 Hgb 10.3 (10.1-14.3) gm/dl Hct 30.4 (30.3-42.9) % MCV 98 H (79-97) fl MCH 33 H (28-32) pg MCHC 34 (30-34) % RDW 14.5 (13.2-15.2) % Plt Count 241 (140-440) K/mm3 Lymph % (Auto) 8.1 L (13.4-35.0) % [place] % (Auto) 3.9 (0.0-7.3) % Eos % (Auto) 0.0 (0.0-4.3) % Baso % (Auto) 0.4 (0.0-1.8) % Lymph # (Auto) 0.6 L (1.2-5.4) K/mm3 [place] # (Auto) 0.3 (0.0-0.8) K/mm3 Eos # (Auto) 0.0 (0.0-0.4) K/mm3 Baso # (Auto) 0.0 (0.0-0.1) K/mm3 Seg Neutrophils % 87.6 H (40.0-70.0) % Seg Neutrophils # 6.2 (1.8-7.7) K/mm3 PT 13.6 (12.2-14.9) Sec. INR 1.05 (0.87-1.13) APTT 32.1 (24.2-36.6) Sec. Sodium 143 (137-145) mmol/L Potassium 3.3 L (3.6-5.0) mmol/L Chloride 100.9 (98-107) mmol/L Carbon Dioxide 30 (22-30) mmol/L Anion Gap 15 mmol/L BUN 19 H (7-17) mg/dL Creatinine 1.3 H (0.6-1.2) mg/dL Estimated GFR 48 ml/min BUN/Creatinine Ratio 15 % Glucose 102 H (65-100) mg/dL Lactic Acid (0.7-2.0) mmol/L Calcium 9.3 (8.4-10.2) mg/dL Total Bilirubin (0.1-1.2) mg/dL Direct Bilirubin (0-0.2) mg/dL Indirect Bilirubin mg/dL AST (5-40) units/L ALT (7-56) units/L Alkaline Phosphatase (35-129) units/L Ammonia (25-60) umol/L Total Creatine Kinase (30-135) units/L Troponin T (0.00-0.029) ng/mL Total Protein (6.3-8.2) g/dL Albumin (3.9-5) g/dL Albumin/Globulin Ratio % TSH (0.270-4.200) mlU/mL 10/19/20 10/19/20 10/19/20 Range/Units 01:08 01:08 01:08 WBC (4.5-11.0) K/mm3 RBC (3.65-5.03) M/mm3 Hgb (10.1-14.3) gm/dl Hct (30.3-42.9) % MCV (79-97) fl MCH (28-32) pg MCHC (30-34) % RDW (13.2-15.2) % Plt Count (140-440) K/mm3 Lymph % (Auto) (13.4-35.0) % [place] % (Auto) (0.0-7.3) % Eos % (Auto) (0.0-4.3) % Baso % (Auto) (0.0-1.8) % Lymph # (Auto) (1.2-5.4) K/mm3 [place] # (Auto) (0.0-0.8) K/mm3 Eos # (Auto) (0.0-0.4) K/mm3 Baso # (Auto) (0.0-0.1) K/mm3 Seg Neutrophils % (40.0-70.0) % Seg Neutrophils # (1.8-7.7) K/mm3 PT (12.2-14.9) Sec. INR (0.87-1.13) APTT (24.2-36.6) Sec. Sodium (137-145) mmol/L Potassium (3.6-5.0) mmol/L Chloride (98-107) mmol/L Carbon Dioxide (22-30) mmol/L Anion Gap mmol/L BUN (7-17) mg/dL Creatinine (0.6-1.2) mg/dL Estimated GFR ml/min BUN/Creatinine Ratio % Glucose (65-100) mg/dL Lactic Acid 1.50 (0.7-2.0) mmol/L Calcium (8.4-10.2) mg/dL Total Bilirubin 0.40 (0.1-1.2) mg/dL Direct Bilirubin < 0.2 (0-0.2) mg/dL Indirect Bilirubin 0.2 mg/dL AST 22 (5-40) units/L ALT 9 (7-56) units/L Alkaline Phosphatase 72 (35-129) units/L Ammonia 14.0 L (25-60) umol/L Total Creatine Kinase 123 (30-135) units/L Troponin T (0.00-0.029) ng/mL Total Protein 7.9 (6.3-8.2) g/dL Albumin 4.6 (3.9-5) g/dL Albumin/Globulin Ratio 1.4 % TSH (0.270-4.200) mlU/mL 10/19/20 10/19/20 Range/Units 01:08 01:08 WBC (4.5-11.0) K/mm3 RBC (3.65-5.03) M/mm3 Hgb (10.1-14.3) gm/dl Hct (30.3-42.9) % MCV (79-97) fl MCH (28-32) pg MCHC (30-34) % RDW (13.2-15.2) % Plt Count (140-440) K/mm3 Lymph % (Auto) (13.4-35.0) % [place] % (Auto) (0.0-7.3) % Eos % (Auto) (0.0-4.3) % Baso % (Auto) (0.0-1.8) % Lymph # (Auto) (1.2-5.4) K/mm3 [place] # (Auto) (0.0-0.8) K/mm3 Eos # (Auto) (0.0-0.4) K/mm3 Baso # (Auto) (0.0-0.1) K/mm3 Seg Neutrophils % (40.0-70.0) % Seg Neutrophils # (1.8-7.7) K/mm3 PT (12.2-14.9) Sec. INR (0.87-1.13) APTT (24.2-36.6) Sec. Sodium (137-145) mmol/L Potassium (3.6-5.0) mmol/L Chloride (98-107) mmol/L Carbon Dioxide (22-30) mmol/L Anion Gap mmol/L BUN (7-17) mg/dL Creatinine (0.6-1.2) mg/dL Estimated GFR ml/min BUN/Creatinine Ratio % Glucose (65-100) mg/dL Lactic Acid (0.7-2.0) mmol/L Calcium (8.4-10.2) mg/dL Total Bilirubin (0.1-1.2) mg/dL Direct Bilirubin (0-0.2) mg/dL Indirect Bilirubin mg/dL AST (5-40) units/L ALT (7-56) units/L Alkaline Phosphatase (35-129) units/L Ammonia (25-60) umol/L Total Creatine Kinase (30-135) units/L Troponin T < 0.010 (0.00-0.029) ng/mL Total Protein (6.3-8.2) g/dL Albumin (3.9-5) g/dL Albumin/Globulin Ratio % TSH 100.000 H (0.270-4.200) mlU/mL - EKG Data -: EKG Interpreted by Nv EKG shows normal: sinus rhythm Rate: normal Interpretation: no acute changes - Radiology Data Radiology results: report reviewed - Medical Decision Making Patient is 75-year-old female with history of hypertension brought to the emergency room by her daughter for evaluation of altered mental status. Daughter stated that her mother was fine and last time she was seen normal was 1 PM yesterday. She stated that she locked herself in the room and when they talk to her she is not she is refusing to come out. She stated that they went inside and they found her in the bathroom holding her head between her leg and not talking. Upon arrival to the ER she stated that she started answering question by yes or no. Patient is in no acute distress with stable vital sign. Patient is moving all her extremities with no difficulty. Speech is clear. Daughter denies any history of dementia before. Patient remained stable in the ER with stable vital sign. Labs reviewed and is unremarkable except for significantly elevated TSH of 100. CT brain is negative for acute finding. I believe patient symptom is most likely related to thyroid myxedema however other differential diagnosis include TIA or other metabolic encephalopathy. Patient received Synthroid 50 MCG IV. I discussed the patient with Dr. Oden, He agreed to admit the patient to medical service for further management. Critical Care Time: Yes Critical care time in (mins) excluding proc time.: 30 Critical care attestation.: If time is entered above; I have spent that time in minutes in the direct care of this critically ill patient, excluding procedure time. ED Disposition Clinical Impression: Altered mental status, Hypothyroidism, Adult myxedema Disposition: OP ADMIT IP TO THIS HOSP Is pt being admited?: Yes Condition: Stable Referrals: PRIMARY CARE, [Primary Care Provider] - 3-5 Days
[2020-10-19 01:29] LABS: Basophils % (Auto) 0.4 % (0.0-1.8); Hematocrit 30.4 % (30.3-42.9); Hemoglobin 10.3 gm/dl (10.1-14.3); Lymphocytes # (Auto) 0.6 K/mm3 (1.2-5.4); Lymphocytes % (Auto) 8.1 % (13.4-35.0); Mean Corpuscular HGB Conc 34 % (30-34); Mean Corpuscular Volume 98 fl (79-97); Monocytes # (Auto) 0.3 K/mm3 (0.0-0.8); Monocytes % (Auto) 3.9 % (0.0-7.3); Platelet Count 241 K/mm3 (140-440); Red Blood Count 3.09 M/mm3 (3.65-5.03); Red Cell Distribution Width 14.5 % (13.2-15.2)
[2020-10-19 01:31] LABS: Calcium 9.3 mg/dL (8.4-10.2)
--- NOTE | 2020-10-19 01:48 | Cat Scan Report ---
CT HEAD WITHOUT CONTRAST INDICATION : Altered Mental Status. TECHNIQUE: Axial, coronal and sagittal CT imaging was performed from the skull apex through the skul l base without contrast. All CT scans at this location are performed using CT dose reduction for ALA RA by means of automated exposure control. COMPARISON: None available. FINDINGS: Motion artifact limits this exam. PARENCHYMA: No mass, midline shift, hemorrhage, extraaxial collection or acute territorial infarctio n. Probable chronic microvascular ischemic changes are seen throughout the periventricular white mat ter. VENTRICLES: Symmetric and normal in size. SOFT TISSUES: No significant abnormality of the included soft tissues/orbits. BONES: No acute osseous abnormality. SINUSES: No significant abnormality. ADDITIONAL FINDINGS: None. IMPRESSION: 1. Limited study due to motion artifact without visualization of an acute abnormality. 2. Additional findings as above. Signer Name: Alfredo Freire MD Signed: 10/19/2020 1:43 AM Workstation Name: [id number]
[2020-10-19 02:05] LABS: Alanine Aminotransferase 9 units/L (7-56); Albumin 4.6 g/dL (3.9-5)
--- NOTE | 2020-10-19 02:05 | XRay Report ---
CHEST 1 VIEW 10/19/2020 12:56 AM INDICATION / CLINICAL INFORMATION: Altered Mental Status. COMPARISON: None available. FINDINGS: SUPPORT DEVICES: None. HEART / MEDIASTINUM: Normal size of the cardiac silhouette with ectasia of the aorta. LUNGS / PLEURA: Clear lungs. No significant pleural effusion. No pneumothorax. ADDITIONAL FINDINGS: No significant additional findings. IMPRESSION: 1. No acute abnormality of the chest. Signer Name: Alfredo Freire MD Signed: 10/19/2020 2:01 AM Workstation Name: [id number]
[2020-10-19 02:07] LABS: Bilirubin,Direct < 0.2 mg/dL (0-0.2)
[2020-10-19 02:14] LABS: INR 1.05 (0.87-1.13)
[2020-10-19 02:15] LABS: Partial Thromboplastin Time 32.1 Sec. (24.2-36.6)
[2020-10-19 02:46] LABS: Bilirubin,Urine NEG (Negative); Blood,Urine NEG (Negative); Color,Urine Straw (Yellow); Urobilinogen,Urine < 2.0 mg/dL (<2.0)
[2020-10-19] MEDS ORDERED: ONDANSETRON 4 MG/2 ML INJ IV PRN ×2 (03:13→05:56)
[2020-10-19] MEDS ORDERED: MAGNESIUM HYDROXIDE (MOM) ORAL LIQD UDC PO PRN (03:13)
[2020-10-19] MEDS ORDERED: MORPHINE 2 MG/1 ML INJ IV PRN (03:13)
[2020-10-19] MEDS ORDERED: ACETAMINOPHEN 325 MG TAB PO PRN ×2 (03:13→05:56)
--- NOTE | 2020-10-19 03:20 | History and Physical Report ---
History of Present Illness Date of examination: 10/19/20 Date of admission: 10/19/2020 Chief complaint: Altered mental status History of present illness: 75-year-old female with known history of hypertension brought into the emergency room today for evaluation of changes in mental status. Most of the history was given by the daughter was by the bedside as patient is quite lethargic. According to daughter patient has not been quite responsive and appeared letharg ic over the past few days. She has looked up at staff in the room and refusing to step out. There has been no history of fever or chills, no chest pain or shortness of breath, no history of seizure disorder,No nausea vomiting and no diarrhea. Daughter however indicates that patient had thyroidectomy about 10 years ago. She has not been on any thyroid replacement therapy. Patient feels cold all the time and covers self with a lot of blanket. Patient was seen in the hospital recently in September 2020 for GI bleed. There has been no history of any recent bleeding since the last admission. Work-up in the emergency room today significant findings were that of potassium of 3.3 and TSH of 100 Patient is being admitted for altered mental status possibly secondary to hypothyroidism. Past History Past Medical History: hypertension Past Surgical History: Other (Thyroidectomy about 10 years ago) Social history: no significant social history Family history: no significant family history Medications and Allergies Allergies Allergy/AdvReac Type Severity Reaction Status Date / Time No Known Allergies Allergy Verified 10/02/20 08:30 Home Medications Medication Instructions Recorded Confirmed Last Taken Type Cetirizine HCl [Zyrtec 10mg tab] 10 mg PO ONCE PRN 10/02/20 10/02/20 Unknown Hi story Pantoprazole [Protonix] 40 mg PO QDAY #30 tablet 10/02/20 Unknown Rx amLODIPine 10 mg PO QDAY #30 tablet 10/02/20 Unknown Rx lisinopriL [Zestril TAB] 5 mg PO QDAY 10/02/20 10/02/20 09/29/20 08:50 History Active Meds: Active Medications Acetaminophen (Acetaminophen 325 Mg Tab) 650 mg PO Q4H PRN PRN Reason: Pain MILD(1-3)/Fever >100.5/CONLEY Heparin Sodium (Porcine) (Heparin 5,000 Unit/1 Ml Vial) 5,000 unit SUB-Q Q8HR [facility] Sodium Chloride (Nacl 0.9% 1000 Ml) 1,000 mls @ 75 mls/hr IV DIRECT NAREN Levothyroxine Sodium (Levothyroxine 100 Mcg Inj) 50 mcg IV DAILY@0600 [facility] Magnesium Hydroxide (Magnesium Hydroxide (Mom) Oral Liqd Udc) 30 ml PO Q4H PRN PRN Reason: Constipation Morphine Sulfate (Morphine 2 Mg/1 Ml Inj) 2 mg IV Q4H PRN PRN Reason: Pain, Moderate (4-6) Ondansetron HCl (Ondansetron 4 Mg/2 Ml Inj) 4 mg IV Q8H PRN PRN Reason: Nausea And Vomiting Sodium Chloride (Sodium Chloride 0.9% 10 Ml Flush Syringe) 10 ml IV BID [facility] Sodium Chloride (Sodium Chloride 0.9% 10 Ml Flush Syringe) 10 ml IV PRN PRN PRN Reason: LINE FLUSH Review of Systems Constitutional: fatigue, weakness, malaise, lethargy, poor appetite, no fever, no chills Ears, nose, mouth and throat: no nasal congestion, no sore throat Cardiovascular: no chest pain, no palpitations Respiratory: no cough, no shortness of breath Gastrointestinal: no abdominal pain, no nausea, no vomiting, no diarrhea Genitourinary Female: no flank pain, no dysuria, no urgency, no hematuria Musculoskeletal: no neck pain, no low back pain Integumentary: no rash, no pruritis Neurological: no headaches, no confusion Psychiatric: no anxiety, no depression, no confusion Endocrine: cold intolerance, no heat intolerance, no polyphagia, no polydipsia, no polyuria, no nocturia, no weight change Exam - Constitutional Vitals: Temp Pulse Resp BP Pulse Ox 97.7 F 65 20 172/96 100 10/19/20 01:21 10/19/20 01:21 10/19/20 01:36 10/19/20 01:21 10/19/20 01:36 General appearance: Present: no acute distress, well-nourished - EENT Eyes: Present: PERRL, EOM intact. Absent: scleral icterus ENT: hearing intact, clear oral mucosa, dentition normal - Neck Neck: Present: supple, normal ROM - Respiratory Respiratory effort: normal Respiratory: bilateral: CTA - Cardiovascular Rhythm: regular Heart Sounds: Present: S1 & S2. Absent: gallop, systolic murmur, diastolic murmur, rub, click - Extremities Extremities: no ischemia, pulses intact, pulses symmetrical, No edema, normal temperature, normal color, Full ROM Peripheral Pulses: within normal limits - Abdominal General gastrointestinal: Present: soft, non-tender, non-distended, normal bowel sounds. Absent: mass - Integumentary Integumentary: Present: clear, warm, dry. Absent: rash - Musculoskeletal Musculoskeletal: strength equal bilaterally - Psychiatric Psychiatric: appropriate mood/affect, intact judgment & insight, memory intact, cooperative - Neurologic Neurologic: CNII-XII intact, no focal deficits, moves all extremities HEART Score - HEART Score Troponin: Troponin T < 0.010 ng/mL (0.00-0.029) 10/19/20 01:08 Results - Labs CBC & Chem 7: 10/19/20 00:52 10/19/20 00:52 Labs: Abnormal lab results 10/19/20 10/19/20 10/19/20 Range/Units 00:52 00:52 01:08 RBC 3.09 L (3.65-5.03) M/mm3 MCV 98 H (79-97) fl MCH 33 H (28-32) pg Lymph % (Auto) 8.1 L (13.4-35.0) % Lymph # (Auto) 0.6 L (1.2-5.4) K/mm3 Seg Neutrophils % 87.6 H (40.0-70.0) % Potassium 3.3 L (3.6-5.0) mmol/L BUN 19 H (7-17) mg/dL Creatinine 1.3 H (0.6-1.2) mg/dL Glucose 102 H (65-100) mg/dL Ammonia 14.0 L (25-60) umol/L TSH (0.270-4.200) mlU/mL Urine pH (5.0-7.0) 10/19/20 10/19/20 Range/Units 01:08 02:37 RBC (3.65-5.03) M/mm3 MCV (79-97) fl MCH (28-32) pg Lymph % (Auto) (13.4-35.0) % Lymph # (Auto) (1.2-5.4) K/mm3 Seg Neutrophils % (40.0-70.0) % Potassium (3.6-5.0) mmol/L BUN (7-17) mg/dL Creatinine (0.6-1.2) mg/dL Glucose (65-100) mg/dL Ammonia (25-60) umol/L TSH 100.000 H (0.270-4.200) mlU/mL Urine pH 8.0 H (5.0-7.0) Assessment and Plan - Patient Problems (1) Altered mental status Current Visit: Yes Status: Acute Plan to address problem: Possibly secondary to the hypothyroidism. CT scan of the head or do limited study due to motion artifact has not revealed any acute abnormality. We will monitor mental status. (2) Hypothyroidism Current Visit: Yes Status: Acute Plan to address problem: Patient has been started on levothyroxine. We will monitor TSH. (3) HTN (hypertension) Current Visit: No Status: Acute Plan to address problem: We will resume routine home medications and monitor vital signs closely. (4) Hypokalemia Current Visit: Yes Status: Acute Plan to address problem: Potassium to be repleted. We will monitor chemistry. (5) DVT prophylaxis Current Visit: Yes Status: Acute Plan to address problem: Patient placed on subcutaneous heparin. (6) Full code status Current Visit: Yes Status: Acute Plan to address problem: Patient is full code.
[2020-10-19] MEDS: LEVOTHYROXINE 100 MCG INJ IV SCH (05:04)
[2020-10-19] MEDS ORDERED: POTASSIUM CHLORIDE 20 MEQ 20 MEQ/100 ML BAG IV ONE (05:56)
[2020-10-19] MEDS ORDERED: CETIRIZINE 10 MG TAB PO PRN ×2 (06:03→12:00)
[2020-10-19] MEDS: hydrALAZINE 20 MG/1 ML INJ IV PRN (06:50)
[2020-10-19] MEDS: SODIUM CHLORIDE 0.9% 1000 ML 1,000 ML IV SCH (06:51)
[2020-10-19] MEDS: amLODIPine 10 MG TAB PO SCH (09:10)
[2020-10-19] MEDS: PANTOPRAZOLE 40 MG TAB PO SCH (09:11)
[2020-10-19] MEDS: LISINOPRIL 5 MG TAB PO SCH (09:12)
[2020-10-19] MEDS: HEPARIN 5,000 UNIT/1 ML VIAL SUB-Q SCH ×3 (11:27→21:35)
--- NOTE | 2020-10-19 13:49 | Event Note ---
Date: 10/19/20 This is the second visit after midnight Patient seen and examined, vitals noted, reviewed H&P, discussed with RN and case management Patient appears malnourished, in no acute distress, S1 and S2 positive abdomen soft and nontender, no edema 75-year-old female with known history of hypertension brought into the emergency room for evaluation of changes in mental status. patient had thyroidectomy about 10 years ago but has not been on any thyroid replacement therapy. Work-up in the emergency room showed potassium of 3.3, creatinine 1.3 and TSH of 100 Patient initiated on Synthroid iv daily, and admitted to the hospital for severe hypothyroidism/myxedema coma Initiate aspirin, order for PT eval, follow BMP Treatment plan and management was thoroughly discussed with patient daughter who was present at the bedside Continue to monitor clinically, follow PT eval, consult dietary for severe malnutrition --Prolonged care time 31 minutes
[2020-10-19] MEDS: ASPIRIN EC 81 MG TAB PO SCH (14:17)
[2020-10-20] MEDS: SODIUM CHLORIDE 0.9% 1000 ML 1,000 ML IV SCH (02:41)
[2020-10-20] MEDS: LEVOTHYROXINE 100 MCG INJ IV SCH (05:27)
[2020-10-20] MEDS: HEPARIN 5,000 UNIT/1 ML VIAL SUB-Q SCH ×3 (05:27→22:14)
[2020-10-20 05:55] LABS: Basophils % (Auto) 0.5 % (0.0-1.8); Eosinophils % (Auto) 0.3 % (0.0-4.3); Hematocrit 30.5 % (30.3-42.9); Hemoglobin 10.4 gm/dl (10.1-14.3); Lymphocytes # (Auto) 0.9 K/mm3 (1.2-5.4); Lymphocytes % (Auto) 11.7 % (13.4-35.0); Mean Corpuscular HGB Conc 34 % (30-34); Mean Corpuscular Volume 98 fl (79-97); Monocytes # (Auto) 0.5 K/mm3 (0.0-0.8); Monocytes % (Auto) 6.2 % (0.0-7.3); Platelet Count 220 K/mm3 (140-440); Red Cell Distribution Width 14.5 % (13.2-15.2)
[2020-10-20 06:03] LABS: INR 1.02 (0.87-1.13)
[2020-10-20 06:18] LABS: Calcium 9.2 mg/dL (8.4-10.2)
--- NOTE | 2020-10-20 10:20 | Electrocardiograph Report ---
[facility] Test Date: 2020-10-19 Test Time: 01:34:48 Pat Name: THANIA EWING Department: Room: A468 1 Gender: F Assembly Machine Operator: : [id number] Requested By: VEENA YANG Order Number: [id number] Reading MD: Steven Shirley Measurements Intervals [place] Rate: 79 P: 49 NM: 218 QRS: -47 QRSD: 104 T: 113 QT: 434 QTc: 466 Interpretive Statements Sinus rhythm Multiform ventricular premature complexes Borderline prolonged NM interval LAD, consider left anterior fascicular block LVH with secondary repolarization abnormality Compared to ECG 10/01/2020 06:21:03 Ventricular premature complex(es) now present Q waves now present Myocardial infarct finding no longer present Electronically Signed On 10-20-2020 10:19:37 EDT by Steven Shirley
[2020-10-20] MEDS: ASPIRIN EC 81 MG TAB PO SCH (11:09)
[2020-10-20] MEDS: amLODIPine 10 MG TAB PO SCH (11:10)
[2020-10-20] MEDS: PANTOPRAZOLE 40 MG TAB PO SCH (11:10)
[2020-10-20] MEDS: LISINOPRIL 5 MG TAB PO SCH (11:10)
--- NOTE | 2020-10-20 15:00 | Progress Note ---
Assessment and Plan --Acute metabolic encephalopathy Possibly secondary to the hypothyroidism. CT scan of the head or do limited study due to motion artifact has not revealed any acute abnormality. We will monitor mental status. -- Hypothyroidism with myxedema coma TSH is 100, patient has significant protein calorie malnutrition and weight loss, complains of being very cold requiring multiple blankets Patient has been started on levothyroxine. We will monitor TSH. -- HTN (hypertension) We will resume routine home medications and monitor vital signs closely. --CHARLENE likely vasomotor nephropathy Creatinine trended up from 1.3-1.6 We will consult nephrology, continue IV fluid -- Hypokalemia Repleted We will monitor chemistry. --Severe protein calorie malnutrition Likely due to severe hypothyroidism Consult dietary -- DVT prophylaxis Patient placed on subcutaneous heparin. -- Full code status Brief history: 75-year-old female with known history of hypertension brought into the emergency room for evaluation of changes in mental status. patient had thyroidectomy about 10 years ago but has not been on any thyroid replacement therapy. Work-up in the emergency room showed potassium of 3.3, creatinine 1.3 and TSH of 100 Patient initiated on Synthroid iv daily, and admitted to the hospital for severe hypothyroidism/myxedema coma Daily clinical status: 10/20: Patient's mental status slightly improved, improved oral intake, ordered for IV fluid but her IV line got infiltrated. Encourage increase oral intake Discussed plan of care at the bedside with the daughter. We will continue to follow BMP and consult nephrology. Subjective Date of service: 10/20/20 Interval history: But he is not like super saver sulfate patient seen and examined. Medical records and medication list reviewed. No acute event overnight noted by the RN. Patient denies any chest pain or difficulty breathing. Patient has very poor appetite She will speak only few words Discussed plan of care at bedside with patient's daughter. Objective - Exam Narrative Exam: GENERAL: elderly malnourished AAF lying on bed appeared to be in no discomfort. HEENT: Normocephalic. Atraumatic. No conjunctival congestion or icterus. Patient has moist mucous membranes. NECK: Supple. Trachea midline. CHEST/LUNGS: Clear to auscultated bilaterally, breathing nonlabored. No wheezes crackles or rhonchi. HEART/CARDIOVASCULAR: Regular in rate and rhythm. S1 and S2 positive. ABDOMEN: Abdomen is soft, nontender. Patient has normal bowel sounds. SKIN: There is no rash. Warm and dry. NEURO: No focal motor deficit. Follows command. Will speak only few words MUSCULOSKELETAL: No joint effusion or tenderness. Has sign of muscle resting EXTRIMITY: No edema, no cyanosis or clubbing. PSYCH: Cooperative. - Constitutional Vitals: Vital Signs - 12hr 10/20/20 10/20/20 10/20/20 03:52 04:21 08:21 Temperature 98.9 F 98.4 F Pulse Rate 41 L 95 H 60 Respiratory 16 18 Rate Blood Pressure 114/93 124/84 O2 Sat by Pulse 98 98 Oximetry 10/20/20 10/20/20 11:10 11:16 Temperature 98.1 F Pulse Rate 89 67 Respiratory 18 Rate Blood Pressure 120/95 O2 Sat by Pulse 99 Oximetry - Labs CBC & Chem 7: 10/22/20 04:34 10/22/20 04:34 Labs: Abnormal lab results 10/20/20 10/20/20 Range/Units 04:43 04:43 RBC 3.10 L (3.65-5.03) M/mm3 MCV 98 H (79-97) fl MCH 33 H (28-32) pg Lymph % (Auto) 11.7 L (13.4-35.0) % Lymph # (Auto) 0.9 L (1.2-5.4) K/mm3 Seg Neutrophils % 81.3 H (40.0-70.0) % BUN 19 H (7-17) mg/dL Creatinine 1.6 H (0.6-1.2) mg/dL HEART Score - HEART Score Troponin: Troponin T < 0.010 ng/mL (0.00-0.029) 10/19/20 01:08
--- NOTE | 2020-10-20 15:02 | Ultrasound Report ---
Renal ultrasound INDICATION: Kidney failure FINDINGS: Right kidney measures 8.4 cm in left kidney 8.4 cm. Cyst within the right kidney measures 1 .2 x 1.1 cm. Cyst in left kidney measures 7 x 4 x 5 mm bilateral kidneys are echogenic. No hydronephr osis. Bladder is not well seen. IMPRESSION: Bilateral renal cysts. No hydronephrosis. Echogenic kidneys suggest medical renal disease. Signer Name: Koffi Summers MD Signed: 10/20/2020 2:58 PM Workstation Name: [id number]
--- NOTE | 2020-10-20 17:29 | Consultation ---
History of Present Illness - Reason for Consult Consult date: 10/20/20 - History of Present Illness This is a 75 y/o F with PMH of HTN, hx of GI bleed, hx of thyroidectomy who presented to [facility] ED with altered mental status. Daughter mentioned pt appeared more lethargic over the past couple of days. CT Head showed no acute abnormality. On admission, SCr level was 1.3, increased to 1.6 today. We were consulted to evaluate this pt who has CHARLENE. Pt seen in the chair, awake, oriented to self, confused, daughter at bedside who assisted with history. Daughter states pt has hx of HTN for at least 20 yrs, denies NSAID use. Pt had TSH level of 100, pt hasn't been on any thyroid replacement medication, started on Levothyroxine Past History Past Medical History: hypertension Past Surgical History: Other (Thyroidectomy about 10 years ago) Social history: no significant social history Family history: no significant family history Medications and Allergies Allergies Allergy/AdvReac Type Severity Reaction Status Date / Time No Known Allergies Allergy Verified 10/02/20 08:30 Home Medications Medication Instructions Recorded Confirmed Last Taken Type Cetirizine HCl [Zyrtec 10mg tab] 10 mg PO ONCE PRN 10/02/20 10/02/20 Unknown History Pantoprazole [Protonix] 40 mg PO QDAY #30 tablet 10/02/20 Unknown Rx amLODIPine 10 mg PO QDAY #30 tablet 10/02/20 Unknown Rx lisinopriL [Zestril TAB] 5 mg PO QDAY 10/02/20 10/02/20 09/29/20 08:50 History Active Meds: Active Medications Acetaminophen (Acetaminophen 325 Mg Tab) 650 mg PO Q4H PRN PRN Reason: Pain MILD(1-3)/Fever >100.5/CONLEY Amlodipine Besylate (Amlodipine 10 Mg Tab) 10 mg PO QDAY [facility] Last Admin: 10/20/20 11:10 Dose: 10 mg Documented by: Aspirin (Aspirin Ec 81 Mg Tab) 81 mg PO QDAY [facility] Last Admin: 10/20/20 11:09 Dose: 81 mg Documented by: Cetirizine HCl (Cetirizine 10 Mg Tab) 10 mg PO DAILY PRN PRN Reason: Itching Heparin Sodium (Porcine) (Heparin 5,000 Unit/1 Ml Vial) 5,000 unit SUB-Q Q8HR [facility] Last Admin: 10/20/20 05:27 Dose: 5,000 unit Documented by: Hydralazine HCl (Hydralazine 20 Mg/1 Ml Inj) 10 mg IV Q4H PRN PRN Reason: Blood Pressure Last Admin: 10/19/20 06:50 Dose: 10 mg Documented by: Sodium Chloride (Nacl 0.9% 1000 Ml) 1,000 mls @ 75 mls/hr IV DIRECT [facility] Last Admin: 10/20/20 02:41 Dose: 50 mls/hr Documented by: Levothyroxine Sodium (Levothyroxine 100 Mcg Inj) 50 mcg IV DAILY@0600 [facility] Last Admin: 10/20/20 05:27 Dose: 50 mcg Documented by: Lisinopril (Lisinopril 5 Mg Tab) 5 mg PO QDAY [facility] Last Admin: 10/20/20 11:10 Dose: 5 mg Documented by: Magnesium Hydroxide (Magnesium Hydroxide (Mom) Oral Liqd Udc) 30 ml PO Q4H PRN PRN Reason: Constipation Morphine Sulfate (Morphine 2 Mg/1 Ml Inj) 2 mg IV Q4H PRN PRN Reason: Pain, Moderate (4-6) Ondansetron HCl (Ondansetron 4 Mg/2 Ml Inj) 4 mg IV Q8H PRN PRN Reason: Nausea And Vomiting Pantoprazole Sodium (Pantoprazole 40 Mg Tab) 40 mg PO QDAY [facility] Last Admin: 10/20/20 11:10 Dose: 40 mg Documented by: Prednisone (Prednisone 50 Mg Tab) 50 mg PO QDAY [facility] Sodium Chloride (Sodium Chloride 0.9% 10 Ml Flush Syringe) 10 ml IV BID [facility] Last Admin: 10/20/20 11:11 Dose: 10 ml Documented by: Sodium Chloride (Sodium Chloride 0.9% 10 Ml Flush Syringe) 10 ml IV PRN PRN PRN Reason: LINE FLUSH Review of Systems ROS unobtainable: due to mental status Exam - Vital Signs Vital signs: Vital Signs Temp Pulse Resp BP Pulse Ox 97.6 F 71 18 163/121 99 10/18/20 23:06 10/18/20 23:06 10/18/20 23:06 10/18/20 23:06 10/18/20 23:06 - General Appearance General appearance: other (awake) EENT: ATNC Neck: Present: neck supple Respiratory: Clear to Ascultation Heart: regular, S1S2 Gastrointestinal: Present: normoactive bowel sounds. Absent: tenderness Integumentary: warm and dry Neurologic: other (awake, oriented to self, confused, follows simple commands) Musculoskeletal: Present: other (no edema to BLE) Results - Lab Results 10/20/20 04:43 10/20/20 04:43 Most recent lab results Calcium 9.2 mg/dL (8.4-10.2) 10/20/20 04:43 Assessment and Plan Assessment: Acute Encephalopathy CHARLENE possibly 2/2 prerenal/ATN, on underlying CKD, no obstruction Hypothyroidism Hypokalemia Plan: - Renal function reviewed, SCr level was 1.6 today, yesterday's SCr level was 1.3 - Most recent SCr level in [facility] prior to this admission was 1.5 on 10/03/20 - On 0.9% NS infusion at 75 ml/hr - Obtain urine lytes/protein, eosinophils - Renal US showed bilateral renal cyst, suggestive of chronic renal disease, no hydronephrosis - CXR showed no acute abnormality in the chest - On low dose lisinopril 5 mg po daily, monitor renal function closely - Replete potassium as needed - Renally dose meds - Check bladder scan - Strict intake and output - Manning Catheter: No - Renal plan reviewed by Dr Brown
[2020-10-20] MEDS: predniSONE 50 MG TAB PO SCH (18:08)
[2020-10-21] MEDS: SODIUM CHLORIDE 0.9% 1000 ML 1,000 ML IV SCH ×2 (00:25→18:41)
[2020-10-21 06:34] LABS: Hematocrit 29.2 % (30.3-42.9); Mean Corpuscular HGB Conc 34 % (30-34); Mean Corpuscular Volume 99 fl (79-97); Platelet Count 218 K/mm3 (140-440); Red Blood Count 2.96 M/mm3 (3.65-5.03); Red Cell Distribution Width 14.8 % (13.2-15.2)
[2020-10-21 06:48] LABS: Calcium 9.2 mg/dL (8.4-10.2)
[2020-10-21] MEDS: HEPARIN 5,000 UNIT/1 ML VIAL SUB-Q SCH ×3 (07:06→22:13)
[2020-10-21] MEDS: LEVOTHYROXINE 100 MCG INJ IV SCH (07:06)
[2020-10-21] MEDS ORDERED: amLODIPine 10 MG TAB PO SCH (10:02)
[2020-10-21] MEDS: PANTOPRAZOLE 40 MG TAB PO SCH (10:38)
[2020-10-21] MEDS: ASPIRIN EC 81 MG TAB PO SCH (10:38)
[2020-10-21] MEDS: LISINOPRIL 5 MG TAB PO SCH (10:38)
[2020-10-21] MEDS: amLODIPine 10 MG TAB PO SCH (10:39)
[2020-10-21] MEDS: amLODIPine 5 MG TAB PO SCH (10:40)
[2020-10-21] MEDS: predniSONE 50 MG TAB PO SCH (10:50)
--- NOTE | 2020-10-21 12:08 | Progress Note ---
Assessment and Plan --Acute metabolic encephalopathy Possibly secondary to the hypothyroidism. CT scan of the head or do limited study due to motion artifact has not revealed any acute abnormality. We will monitor mental status. -- Hypothyroidism with myxedema coma TSH is 100, patient has significant protein calorie malnutrition and weight loss, complains of being very cold requiring multiple blankets Patient has been started on levothyroxine. Also initiated on steroid We will monitor TSH. -- HTN (hypertension) Stop lisinopril, and reduce amlodipine dose to 5 mg daily --CHARLENE likely vasomotor nephropathy Creatinine trended up from 1.3-1.7 Consulted nephrology, continue IV fluid, stop lisinopril -- Hypokalemia. repleted. We will monitor chemistry. --Severe protein calorie malnutrition Likely due to severe hypothyroidism Consult dietary -- DVT prophylaxis Patient placed on subcutaneous heparin. -- Full code status Brief history: 75-year-old female with known history of hypertension brought into the emergency room for evaluation of changes in mental status. patient had thyroidectomy about 10 years ago but has not been on any thyroid replacement therapy. Work-up in the emergency room showed potassium of 3.3, creatinine 1.3 and TSH of 100 Patient initiated on Synthroid iv daily, and admitted to the hospital for severe hypothyroidism/myxedema coma Daily clinical status: 10/20: Patient's mental status slightly improved, improved oral intake, ordered for IV fluid but her IV line got infiltrated. Encourage increase oral intake Discussed plan of care at the bedside with the daughter. We will continue to follow BMP and consult nephrology. 10/21: Creatinine 1.7 today, discussed with daughter at the bedside. Patient apparently looking better and improved oral intake. Discharge planning once cleared by nephrology. Stop lisinopril and adjust BP medications. Subjective Date of service: 10/21/20 Interval history: But he is not like super saver sulfate patient seen and examined. Medical records and medication list reviewed. No acute event overnight noted by the RN. Patient denies any chest pain or difficulty breathing. Per the daughter Patient's appetite has improved Patient is sitting in a chair today appears more alert and cooperative Discussed plan of care at bedside with patient's daughter. Objective - Exam Narrative Exam: GENERAL: elderly malnourished AAF sitting in a chair appeared to be in no discomfort. HEENT: Normocephalic. Atraumatic. No conjunctival congestion or icterus. Patient has moist mucous membranes. NECK: Supple. Trachea midline. CHEST/LUNGS: Clear to auscultated bilaterally, breathing nonlabored. No wheezes crackles or rhonchi. HEART/CARDIOVASCULAR: Regular in rate and rhythm. S1 and S2 positive. ABDOMEN: Abdomen is soft, nontender. Patient has normal bowel sounds. SKIN: There is no rash. Warm and dry. NEURO: No focal motor deficit. Follows command. MUSCULOSKELETAL: No joint effusion or tenderness. Has sign of muscle resting EXTRIMITY: No edema, no cyanosis or clubbing. PSYCH: Cooperative. - Constitutional Vitals: Vital Signs - 12hr 10/21/20 10/21/20 10/21/20 04:39 07:56 11:15 Temperature 98.0 F 97.3 F L Pulse Rate 54 L 58 L 115 H Respiratory 18 18 Rate Blood Pressure 117/88 100/57 O2 Sat by Pulse 100 98 Oximetry - Labs CBC & Chem 7: 10/22/20 04:34 10/22/20 04:34 Labs: Abnormal lab results 10/21/20 10/21/20 10/21/20 Range/Units 04:44 04:44 04:44 RBC 2.96 L (3.65-5.03) M/mm3 Hgb 10.0 L (10.1-14.3) gm/dl Hct 29.2 L (30.3-42.9) % MCV 99 H (79-97) fl MCH 34 H (28-32) pg BUN 25 H (7-17) mg/dL Creatinine 1.7 H (0.6-1.2) mg/dL Glucose 132 H (65-100) mg/dL PTH Intact 173.4 H (15-65) pg/mL HEART Score - HEART Score Troponin: Troponin T < 0.010 ng/mL (0.00-0.029) 10/19/20 01:08
--- NOTE | 2020-10-21 12:50 | Progress Note ---
Assessment and Plan Assessment: Acute Encephalopathy CHARLENE possibly 2/2 prerenal/ATN, on underlying CKD, no obstruction Hypothyroidism Hypokalemia Plan: - Renal function reviewed, SCr level was 1.7 today, yesterday's SCr level was 1.6 - Most recent SCr level in [facility] prior to this admission was 1.5 on 10/03/20 - On 0.9% NS infusion at 75 ml/hr - Lisinopril now held today - Renal US showed bilateral renal cyst, suggestive of chronic renal disease, no hydronephrosis - Urine lytes/protein, eosinophils-pending - CXR showed no acute abnormality in the chest - Replete potassium as needed - Renally dose medications - Strict intake and output - Manning Catheter: No - Renal plan reviewed with Dr. Vargas Subjective Date of service: 10/21/20 Principal diagnosis: ARF on CKD Interval history: Patient seen sitting up in chair. Daughter at bedside. Reviewed renal labs. IV fluids was disconnected, daughter states nurse plans to reconnect it when patient goes back in bed. Objective - Vital Signs Vital signs: Vital Signs - 12hr 10/21/20 10/21/20 10/21/20 04:39 07:56 11:15 Temperature 98.0 F 97.3 F L Pulse Rate 54 L 58 L 115 H Respiratory 18 18 Rate Blood Pressure 117/88 100/57 O2 Sat by Pulse 100 98 Oximetry - General Appearance General appearance: well-developed, appears stated age EENT: ATNC, hearing intact, vision intact Neck: no JVD, supple Respiratory: Present: Decreased Breath Sounds Cardiology: S1S2 Gastrointestinal: normoactive bowel sounds Integumentary: warm and dry Neurologic: other (Awake and alert) Musculoskeletal: other (No edema) - Lab 10/21/20 04:44 10/21/20 04:44 Most recent lab results Calcium 9.2 mg/dL (8.4-10.2) 10/21/20 04:44 Phosphorus 3.00 mg/dL (2.5-4.5) 10/21/20 04:44 Magnesium 2.30 mg/dL (1.7-2.3) 10/21/20 04:44 Medications & Allergies - Medications Allergies/Adverse Reactions: Allergies No Known Allergies Allergy (Verified 10/02/20 08:30) Home Medications: Home Medications Medication Instructions Recorded Confirmed Last Taken Type Cetirizine HCl [Zyrtec 10mg tab] 10 mg PO ONCE PRN 10/02/20 10/02/20 Unknown History Pantoprazole [Protonix] 40 mg PO QDAY #30 tablet 10/02/20 Unknown Rx amLODIPine 10 mg PO QDAY #30 tablet 10/02/20 Unknown Rx lisinopriL [Zestril TAB] 5 mg PO QDAY 10/02/20 10/02/20 09/29/20 08:50 History Active Medications: Generic Name Dose Route Start Last Admin Trade Name Freq PRN Reason Stop Dose Admin Acetaminophen 650 mg 10/19/20 03:13 Acetaminophen 325 Mg Tab PO Q4H PRN Pain MILD(1-3)/Fever >100.5/CONLEY Amlodipine Besylate 5 mg 10/21/20 10:00 10/21/20 10:40 Amlodipine 5 Mg Tab PO 5 mg QDAY NAREN Administration Aspirin 81 mg 10/19/20 14:00 10/21/20 10:38 Aspirin Ec 81 Mg Tab PO 81 mg QDAY NAREN Administration Cetirizine HCl 10 mg 10/19/20 12:00 Cetirizine 10 Mg Tab PO DAILY PRN Itching Heparin Sodium (Porcine) 5,000 unit 10/19/20 06:00 10/21/20 07:06 Heparin 5,000 Unit/1 Ml Vial SUB-Q 5,000 unit Q8HR NAREN Administration Hydralazine HCl 10 mg 10/19/20 06:03 10/19/20 06:50 Hydralazine 20 Mg/1 Ml Inj IV 10 mg Q4H PRN Administration Blood Pressure Sodium Chloride 1,000 mls @ 75 mls/hr 10/19/20 03:15 10/21/20 00:25 Nacl 0.9% 1000 Ml IV 50 mls/hr DIRECT NAREN Administration Levothyroxine Sodium 50 mcg 10/19/20 05:00 10/21/20 07:06 Levothyroxine 100 Mcg Inj IV 50 mcg DAILY@0600 NAREN Administration Magnesium Hydroxide 30 ml 10/19/20 03:13 Magnesium Hydroxide (Mom) Oral Liqd Udc PO Q4H PRN Constipation Morphine Sulfate 2 mg 10/19/20 03:13 Morphine 2 Mg/1 Ml Inj IV Q4H PRN Pain, Moderate (4-6) Ondansetron HCl 4 mg 10/19/20 03:13 Ondansetron 4 Mg/2 Ml Inj IV Q8H PRN Nausea And Vomiting Pantoprazole Sodium 40 mg 10/19/20 10:00 10/21/20 10:38 Pantoprazole 40 Mg Tab PO 40 mg QDAY NAREN Administration Prednisone 50 mg 10/20/20 17:00 10/21/20 10:50 Prednisone 50 Mg Tab PO 50 mg QDAY NAREN Administration Sodium Chloride 10 ml 10/19/20 10:00 10/21/20 10:40 Sodium Chloride 0.9% 10 Ml Flush Syringe IV 10 ml BID NAREN Administration Sodium Chloride 10 ml 10/19/20 03:13 Sodium Chloride 0.9% 10 Ml Flush Syringe IV PRN PRN LINE FLUSH
[2020-10-21 18:46] LABS: Hyaline Casts,Urine 3 /LPF; Mucus,Urine FEW /HPF
[2020-10-21 18:55] LABS: Creatinine,Urine 234.1 mg/dL (0.1-20.0); Microalbumin/Creatinine Ratio 34.1 ug/mg; Protein/Creatinine Ratio,Urine 0.21
[2020-10-22] MEDS: hydrALAZINE 20 MG/1 ML INJ IV PRN (00:02)
[2020-10-22 06:06] LABS: Hematocrit 31.6 % (30.3-42.9); Hemoglobin 10.6 gm/dl (10.1-14.3); Mean Corpuscular HGB Conc 34 % (30-34); Mean Corpuscular Volume 98 fl (79-97); Platelet Count 261 K/mm3 (140-440); Red Blood Count 3.23 M/mm3 (3.65-5.03); Red Cell Distribution Width 14.5 % (13.2-15.2)
[2020-10-22 06:24] LABS: Calcium 9.5 mg/dL (8.4-10.2)
[2020-10-22] MEDS: LEVOTHYROXINE 100 MCG INJ IV SCH (07:43)
[2020-10-22] MEDS: HEPARIN 5,000 UNIT/1 ML VIAL SUB-Q SCH ×2 (07:44→14:57)
[2020-10-22] MEDS: SODIUM CHLORIDE 0.9% 1000 ML 1,000 ML IV SCH (10:28)
[2020-10-22] MEDS: amLODIPine 5 MG TAB PO SCH (10:30)
[2020-10-22] MEDS: PANTOPRAZOLE 40 MG TAB PO SCH (10:30)
[2020-10-22] MEDS: ASPIRIN EC 81 MG TAB PO SCH (10:30)
[2020-10-22] MEDS: predniSONE 50 MG TAB PO SCH (10:31)
--- NOTE | 2020-10-22 11:08 | Progress Note ---
Assessment and Plan Acute Encephalopathy CHARLENE possibly 2/2 prerenal/ATN, on underlying CKD, no obstruction Hypothyroidism Hypokalemia Plan: - Cr is slowly rising, good UOP - Most recent SCr level in [facility] prior to this admission was 1.5 on 10/03/20 -cont 0.9% NS infusion at 75 ml/hr - Lisinopril now held - Renal US showed bilateral renal cyst, suggestive of chronic renal disease, no hydronephrosis - CXR showed no acute abnormality in the chest - Replete potassium as needed - Renally dose medications - Strict intake and output - Manning Catheter: No Subjective Date of service: 10/22/20 Principal diagnosis: ARF on CKD Interval history: was working with PT, daughter at bedside, all questions answered Objective - Vital Signs Vital signs: Vital Signs - 12hr 10/21/20 10/22/20 10/22/20 23:34 03:52 08:05 Temperature 97.6 F 97.9 F 97.7 F Pulse Rate 82 56 L 61 Respiratory 20 16 18 Rate Blood Pressure 167/102 130/81 127/82 O2 Sat by Pulse 98 100 97 Oximetry 10/22/20 10:30 Temperature Pulse Rate 61 Respiratory Rate Blood Pressure 127/82 O2 Sat by Pulse Oximetry - General Appearance General appearance: well-developed, well-nourished EENT: ATNC, PERRL, mucous membranes moist Neck: no JVD, no carotid bruit Respiratory: Present: Clear to Ascultation. Absent: Rales, Ronchi Cardiology: regular, S1S2 Gastrointestinal: normoactive bowel sounds, no tenderness, no distended Integumentary: no rash, warm and dry Neurologic: no focal deficit, no asterixis Musculoskeletal: other (no edema in BLE) Psychiatric: mood/affect appropriate, cooperative - Lab 10/22/20 04:34 10/22/20 04:34 Most recent lab results Calcium 9.5 mg/dL (8.4-10.2) 10/22/20 04:34 Phosphorus 3.00 mg/dL (2.5-4.5) 10/21/20 04:44 Magnesium 2.30 mg/dL (1.7-2.3) 10/21/20 04:44 Urine Creatinine 234.1 mg/dL (0.1-20.0) H 10/21/20 18:39 Urine Sodium 24 mmol/L 10/21/20 18:39 Urine Total Protein 48 mg/dL (5-11.8) H 10/21/20 18:39 Medications & Allergies - Medications Allergies/Adverse Reactions: Allergies No Known Allergies Allergy (Verified 10/02/20 08:30) Home Medications: Home Medications Medication Instructions Recorded Confirmed Last Taken Type Cetirizine HCl [Zyrtec 10mg tab] 10 mg PO ONCE PRN 10/02/20 10/21/20 Unknown History Pantoprazole [Protonix] 40 mg PO QDAY #30 tablet 10/02/20 10/21/20 Unknown Rx amLODIPine 10 mg PO QDAY #30 tablet 10/02/20 10/21/20 Unknown Rx lisinopriL [Zestril TAB] 5 mg PO QDAY 10/02/20 10/21/20 09/29/20 08:50 History Active Medications: Generic Name Dose Route Start Last Admin Trade Name Freq PRN Reason Stop Dose Admin Acetaminophen 650 mg 10/19/20 03:13 Acetaminophen 325 Mg Tab PO Q4H PRN Pain MILD(1-3)/Fever >100.5/CONLEY Amlodipine Besylate 5 mg 10/21/20 10:00 10/22/20 10:30 Amlodipine 5 Mg Tab PO 5 mg QDAY NAREN Administration Aspirin 81 mg 10/19/20 14:00 10/22/20 10:30 Aspirin Ec 81 Mg Tab PO 81 mg QDAY NAREN Administration Cetirizine HCl 10 mg 10/19/20 12:00 Cetirizine 10 Mg Tab PO DAILY PRN Itching Heparin Sodium (Porcine) 5,000 unit 10/19/20 06:00 10/22/20 07:44 Heparin 5,000 Unit/1 Ml Vial SUB-Q 5,000 unit Q8HR NAREN Administration Hydralazine HCl 10 mg 10/19/20 06:03 10/22/20 00:02 Hydralazine 20 Mg/1 Ml Inj IV 10 mg Q4H PRN Administration Blood Pressure Sodium Chloride 1,000 mls @ 75 mls/hr 10/19/20 03:15 10/22/20 10:28 Nacl 0.9% 1000 Ml IV 50 mls/hr DIRECT NAREN Administration Levothyroxine Sodium 50 mcg 10/19/20 05:00 10/22/20 07:43 Levothyroxine 100 Mcg Inj IV 50 mcg DAILY@0600 NAREN Administration Magnesium Hydroxide 30 ml 10/19/20 03:13 Magnesium Hydroxide (Mom) Oral Liqd Udc PO Q4H PRN Constipation Morphine Sulfate 2 mg 10/19/20 03:13 Morphine 2 Mg/1 Ml Inj IV Q4H PRN Pain, Moderate (4-6) Ondansetron HCl 4 mg 10/19/20 03:13 Ondansetron 4 Mg/2 Ml Inj IV Q8H PRN Nausea And Vomiting Pantoprazole Sodium 40 mg 10/19/20 10:00 10/22/20 10:30 Pantoprazole 40 Mg Tab PO 40 mg QDAY NAREN Administration Prednisone 50 mg 10/20/20 17:00 10/22/20 10:31 Prednisone 50 Mg Tab PO 50 mg QDAY NAREN Administration Sodium Chloride 10 ml 10/19/20 10:00 10/22/20 10:31 Sodium Chloride 0.9% 10 Ml Flush Syringe IV 10 ml BID NAREN Administration Sodium Chloride 10 ml 10/19/20 03:13 10/22/20 00:03 Sodium Chloride 0.9% 10 Ml Flush Syringe IV 10 ml PRN PRN Administration LINE FLUSH
[2020-10-22 13:45] VITALS: BP 136/84
--- NOTE | 2020-10-22 13:55 | Discharge Summary ---
Providers - Providers Date of Admission: 10/19/20 02:48 Date of discharge: 10/22/20 Attending physician: KECIA CARRINGTON 10/19/20 11:15 Physical Therapy Evaluation and Treat [CONS] Routine Comment: Reason For Exam: Debility 10/20/20 10:29 Consult to Physician [CONS] Routine Comment: Consulting Provider: JEIMY LUDWIG Physician Instructions: Reason For Exam: charlene Primary care physician: FOLLOW UP MANAGER Hospitalization Condition: Stable Pertinent studies: Chest x-ray, head CT, Renal ultrasound Hospital course: 75-year-old female with known history of hypertension brought into the emergency room for evaluation of changes in mental status. patient had thyroidectomy about 10 years ago but has not been on any thyroid replacement therapy. Work-up in the emergency room showed potassium of 3.3, creatinine 1.3 and TSH of 100 Patient initiated on Synthroid iv daily, and admitted to the hospital for severe hypothyroidism/myxedema coma Daily clinical status: 10/20: Patient's mental status slightly improved, improved oral intake, ordered for IV fluid but her IV line got infiltrated. Encourage increase oral intake Discussed plan of care at the bedside with the daughter. We will continue to follow BMP and consult nephrology. 10/21: Creatinine 1.7 today, discussed with daughter at the bedside. Patient apparently looking better and improved oral intake. Discharge planning once cleared by nephrology. Stop lisinopril and adjust BP medications. 10/22; creatinine 1.8 today, discussed with refinery superintendent and recommended patient could be discharged home with outpatient follow-up. Patient clinically looks much better, vitals stable. Appetite has significantly improved. Patient will be discharged home in stable condition with outpatient nephrology follow-up patient daughter at the bedside and discussed discharge plan with and she verbalized understanding. Disposition: - TO HOME OR SELFCARE Final Discharge Diagnosis (Prints w/discharge instructions): Acute metabolic encephalopathy secondary to severe hypothyroidism. Hypothyroidism with myxedema coma. Hypertension. CHARLENE likely vasomotor nephropathy with underlying possible CKD. Hypokalemia. Severe protein calorie malnutrition Time spent for discharge: 38 minutes Core Measure Documentation - Palliative Care Palliative Care/ Comfort Measures: Not Applicable - Core Measures Any of the following diagnoses?: none Exam - Physical Exam Narrative exam: GENERAL: elderly malnourished AAF sitting in a chair appeared to be in no discomfort. HEENT: Normocephalic. Atraumatic. No conjunctival congestion or icterus. Patient has moist mucous membranes. NECK: Supple. Trachea midline. CHEST/LUNGS: Clear to auscultated bilaterally, breathing nonlabored. No wheezes crackles or rhonchi. HEART/CARDIOVASCULAR: Regular in rate and rhythm. S1 and S2 positive. ABDOMEN: Abdomen is soft, nontender. Patient has normal bowel sounds. SKIN: There is no rash. Warm and dry. NEURO: No focal motor deficit. Follows command. MUSCULOSKELETAL: No joint effusion or tenderness. Has sign of muscle resting EXTRIMITY: No edema, no cyanosis or clubbing. PSYCH: Cooperative. - Constitutional Vitals: Temp Pulse Resp BP Pulse Ox 97.7 F 72 18 136/84 97 10/22/20 11:51 10/22/20 11:51 10/22/20 11:51 10/22/20 11:51 10/22/20 11:51 Plan Activity: advance as tolerated Weight Bearing Status: Weight Bear as Tolerated Diet: regular Special Instructions: record daily BP diary Additional Instructions: Repeat TSH in the next 2 weeks. Repeat BMP in the next 1 week. Follow-up with nephrology 1 week. Follow-up with endocrinology for hypothyroidism in the next 2 weeks Follow up with: PRIMARY CARE, [Primary Care Provider] - 3-5 Days DAWIT LEBRON MD [Staff Physician] - 7 Days FARA HYMAN MD [Staff Physician] - 7 Days Prescriptions: amLODIPine 5 mg PO QDAY #30 tablet Aspirin EC [Halfprin EC] 81 mg PO QDAY #30 tablet predniSONE 10 mg PO .TAPER #21 tab Levothyroxine [Synthroid] 50 mcg PO QAM #30 tablet
== END 2020-10-22 15:40 | disposition home or self-care (01) | DRG 80 ==
LOC: ED 22:34 → 4A 10-19 02:48
PROVIDERS: ADMIT Internal Medicine Geriatric Medicine; ATTEND Internal Medicine
DX: E03.5 Myxedema coma (principal); N17.0 Acute kidney failure with tubular necrosis; E43 Unspecified severe protein-calorie malnutrition; G93.41 Metabolic encephalopathy; Z68.1 Body mass index [BMI] 19.9 or less, adult; E87.6 Hypokalemia; E03.9 Hypothyroidism, unspecified; N18.9 Chronic kidney disease, unspecified; I12.9 Hypertensive chronic kidney disease with stage 1 through stage 4 chronic kidney disease, or unspecified chronic kidney disease; Z79.899 Other long term (current) drug therapy
CPT/HCPCS: 36415; 70450; 71045; 76770; 80048; 80076; 81001; 81015; 82043; 82140; 82550; 82570; 82607; 82747; 82962; 83735; 83970; 84100; 84156; 84300; 84443; 84484; 85025; 85027; 85610; 85730; 87086; 89050; 93005; 96374; 96375; G0378; J0360; J1644; J3480; J7030; J7512